=== PATIENT | female | born 1945 | race Caucasian/White ===

== ENCOUNTER 2020-12-17 03:48 | Emergency (ER) | payer MEDICARE, OTHER ==
[2020-12-17 03:59] VITALS: O2SAT 98
[2020-12-17] MEDS ORDERED: Zofran 4 MG/2 ML VIAL IV ONE (04:07)
[2020-12-17] MEDS ORDERED: MORPHINE SULFATE 4 MG INJ IV ONE (04:07)
[2020-12-17] MEDS ORDERED: Pepcid 20 MG VIAL IV ONE ×2 (04:07→04:19)
[2020-12-17] MEDS ORDERED: BENADRYL 50 MG/ML IV ONE (04:10)
[2020-12-17] MEDS ORDERED: Sodium Chloride 0.9% 1000 ML 1,000 ML IV SCH (04:15)
--- NOTE | 2020-12-17 04:18 | ERPHSYRPT ---
- History of Present Illness Time Seen by Provider: 12/17/20 04:11 Historian: patient, family Exam Limitations: no limitations Patient Subjective Stated Complaint: pt states, "I've had this abd pain about 3 or 4 times in the last 6 weeks. It woke me up from sleep this morning". Triage Nursing Assessment: pt c/o abd pain across the abd, but does not radiate anywhere. Abd soft with active bs x4 quad, tender on palpation. Pt states, "the pain woke me up around 0100 this morning and I've had this pain 3-4 times in the last 6 weeks. Pt had bm around 0230 this morning. Physician History: pt is 74 yr old female with hx of recurring abdominal pain lasting about 4 hours awakening at night several times over the past 6 weeks. No fever, N or V, . No trauma. Denies CP or SOBreath, but cardiac is a concern in this age group with epigastric/general abd pain. abd is nontender without peritoneal signs or masses at this time , although it is noted that tenderness appeared present a few moments ago on the nurses exam. Timing/Duration: today Activities at Onset: sleep Quality: sharpness, stabbing Abdominal Pain Onset Location: generalized abdomen Pain Radiation: no radiation Severity of Pain-Max: moderate Severity of Pain-Current: moderate Modifying Factors: Improves With: nothing Associated Symptoms: denies symptoms Allergies/Adverse Reactions: No Known Drug Allergies Allergy (Unverified 12/17/20 04:10) Home Medications: Mecobalamin [B12 Active] 1,000 mg PO WEEKLY 12/17/20 [History] Metformin HCl 500 mg [Glucophage 500 MG] 500 mg PO HS 12/17/20 [History] Hx Tetanus, Diphtheria Vaccination/Date Given: Yes Hx Influenza Vaccination/Date Given: Yes Hx Pneumococcal Vaccination/Date Given: Yes Immunizations Up to Date: Yes Travel Risk - International Travel Have you traveled outside of the country in past 3 weeks: No - Coronavirus Screening Are you exhibiting any of the following symptoms?: No Close contact with a COVID-19 positive Pt in past 14-21 Days: No - Vaccine Status Have you recieved a Covid-19 vaccination: Yes [employer]ter: Moderna - Vaccination Dates Date of 2cond Vaccination (if applicable): 10/12/20 - Review of Systems Constitutional: No Fever, No Chills Eyes: No Symptoms Ears, Nose, & Throat: No Symptoms Respiratory: No Cough, No Dyspnea Cardiac: No Chest Pain, No Edema, No Syncope Abdominal/Gastrointestinal: Abdominal Pain, No Nausea, No Vomiting, No Diarrhea Genitourinary Symptoms: No Dysuria Musculoskeletal: No Back Pain, No Neck Pain Skin: No Rash Neurological: No Dizziness, No Focal Weakness, No Sensory Changes Psychological: No Symptoms Endocrine: No Symptoms All Other Systems: Reviewed and Negative - Past Medical History Pertinent Past Medical History: Yes Neurological History: No Pertinent History ENT History: No Pertinent History Cardiac History: High Cholesterol Respiratory History: No Pertinent History Endocrine Medical History: No Pertinent History Musculoskeletal History: Arthritis GI Medical History: No Pertinent History History: Other Psycho-Social History: No Pertinent History Female Reproductive Disorders: Breast Cancer Other Medical History: dropped prolapsed bladder - Past Surgical History Past Surgical History: Yes Neuro Surgical History: No Pertinent History Cardiac: No Pertinent History Respiratory: No Pertinent History Gastrointestinal: No Pertinent History Genitourinary: No Pertinent History Musculoskeletal: No Pertinent History Female Surgical History: No Pertinent History Other Surgical History: lumpectomy lt side - Social History Smoking Status: Never smoker Exposure to second hand smoke: No Drug Use: none Patient Lives Alone: No - Nursing Vital Signs Nursing Vital Signs: Initial Vital Signs Temperature 98.4 F 12/17/20 03:58 Pulse Rate 92 H 12/17/20 03:58 Respiratory Rate 16 12/17/20 03:58 Blood Pressure 191/87 12/17/20 03:58 O2 Sat by Pulse Oximetry 98 12/17/20 03:58 Pain Scale Pain Intensity 6 - Physical Exam General Appearance: no apparent distress, alert Eye Exam: PERRL/EOMI, eyes nml inspection Ears, Nose, Throat Exam: normal ENT inspection, pharynx normal, moist mucous membranes Neck Exam: normal inspection, non-tender, supple, full range of motion Respiratory Exam: normal breath sounds, lungs clear, No respiratory distress Cardiovascular Exam: regular rate/rhythm, normal heart sounds Gastrointestinal/Abdomen Exam: soft, No tenderness, No distention, No mass, No guarding, No pulsatile mass, No rebound Pelvic Exam: deferred Rectal Exam: deferred Back Exam: normal inspection, normal range of motion, No CVA tenderness, No vertebral tenderness Extremity Exam: normal inspection, normal range of motion, pelvis stable Neurologic Exam: alert, oriented x 3, cooperative, normal mood/affect, nml cerebellar function, sensation nml, No motor deficits Skin Exam: normal color, warm, dry SpO2 Interpretation: normal SpO2: 98 O2 Delivery: Room Air - Course Nursing assessment & vital signs reviewed: Yes EKG Interpreted by Me: Sinus Rhythm, NORMAL AXIS, NORMAL INTERVALS, NORMAL QRS, Non-specific ST Changes - CT Exams Abdomen/Pelvis CT Interpretation: Tele-radiologist Report, No appendicitis, Other (diverticu losis, gallstones,renal cyst,hiatal hernia) Ordered Tests: Active Orders 24 hr Category Date Time Status EKG-ER Only STAT Care 12/17/20 04:07 Active IV Insertion STAT Care 12/17/20 04:07 Active NPO (ED) STAT Care 12/17/20 04:07 Active ABDOMEN AND PELVIS W/0 CONTRAS [CT] Stat Exams 12/17/20 04:08 Taken AMYLASE Stat Lab 12/17/20 04:17 Completed CBC W DIFF Stat Lab 12/17/20 04:17 Completed CMP Stat Lab 12/17/20 04:17 Completed LIPASE Stat Lab 12/17/20 04:17 Completed Lactic Acid Stat Lab 12/17/20 04:07 Completed TROPONIN Q3H Lab 12/17/20 04:15 Completed TROPONIN Q3H Lab 12/17/20 07:15 Ordered TROPONIN Q3H Lab 12/17/20 10:15 Ordered TROPONIN Q3H Lab 12/17/20 13:15 Ordered TROPONIN Q3H Lab 12/17/20 16:15 Ordered UA W/RFX UR CULTURE Stat Lab 12/17/20 04:13 Completed Medication Summary Generic Name Dose Route Start Last Admin Trade Name Freq PRN Reason Stop Dose Admin Sodium Chloride 1,000 mls @ 100 mls/hr 12/17/20 04:15 12/17/20 04:35 Sodium Chloride 0.9% 1000 Ml IV 01/16/21 04:14 100 mls/hr .Q10H JAME Administration Discontinued Medications Generic Name Dose Route Start Last Admin Trade Name Freq PRN Reason Stop Dose Admin Diphenhydramine HCl 12.5 mg 12/17/20 04:10 12/17/20 04:33 Benadryl 50 Mg/Ml IV 12/17/20 04:11 12.5 mg STAT ONE Administration Diphenhydramine HCl Confirm 12/17/20 04:19 Benadryl 50 Mg/Ml Administered 12/17/20 04:20 Dose 50 mg .ROUTE .STK-MED ONE Famotidine 20 mg 12/17/20 04:07 12/17/20 04:34 Pepcid 20 Mg Vial IV 12/17/20 04:08 20 mg STAT ONE Administration Famotidine Confirm 12/17/20 04:19 Pepcid 20 Mg Vial Administered 12/17/20 04:20 Dose 20 mg IV .STK-MED ONE Morphine Sulfate 4 mg 12/17/20 04:07 12/17/20 04:34 Morphine Sulfate 4 Mg Inj IV 12/17/20 04:08 4 mg STAT ONE Administration Morphine Sulfate Confirm 12/17/20 04:19 Morphine Sulfate 4 Mg Inj Administered 12/17/20 04:20 Dose 4 mg .ROUTE .STK-MED ONE Ondansetron HCl 4 mg 12/17/20 04:07 12/17/20 04:34 Zofran 4 Mg/2 Ml Vial IV 12/17/20 04:08 4 mg STAT ONE Administration Ondansetron HCl Confirm 12/17/20 04:19 Zofran 4 Mg/2 Ml Vial Administered 12/17/20 04:20 Dose 4 mg .ROUTE .STK-MED ONE Lab/Rad Data: Laboratory Result Diagrams 12/17/20 04:17 12/17/20 04:17 Laboratory Results 12/17/20 12/17/20 12/17/20 Range/Units 04:17 04:17 04:15 WBC 11.4 H (4.0-10.5) K/mm3 RBC 4.72 (4.1-5.4) M/mm3 Hgb 12.7 (12.0-16.0) gm/dl Hct 40.8 (35-47) % MCV 86.4 (78-100) fl MCH 26.9 (26-32) pg MCHC 31.1 L (32-36) g/dl RDW 13.6 (11.5-14.0) % Plt Count 248 (150-450) K/mm3 MPV 9.2 (7.5-11.0) fl Gran % 80.8 H (36.0-66.0) % Eos # (Auto) 0.15 (0-0.5) Absolute Lymphs (auto) 1.29 (1.0-4.6) Absolute Monos (auto) 0.72 (0.0-1.3) Lymphocytes % 11.3 L (24.0-44.0) % Monocytes % 6.3 (0.0-12.0) % Eosinophils % 1.3 (0.00-5.0) % Basophils % 0.3 (0.0-0.4) % Absolute Granulocytes 9.23 H (1.4-6.9) Basophils # 0.03 (0-0.4) Sodium 142 (137-145) mmol/L Potassium 3.3 L (3.5-5.1) mmol/L Chloride 105 (98-107) mmol/L Carbon Dioxide 29 (22-30) mmol/L Anion Gap 10.1 (5-15) MEQ/L BUN 13 (7-17) mg/dL Creatinine 0.78 (0.52-1.04) mg/dL Estimated GFR > 60.0 ML/MIN Glucose 161 H (74-106) mg/dL Lactic Acid (0.4-2.0) Calcium 9.1 (8.4-10.2) mg/dL Total Bilirubin 0.40 (0.2-1.3) mg/dL AST 20 (14-36) U/L ALT 13 (0-35) U/L Alkaline Phosphatase 98 (38-126) U/L Troponin I < 0.012 (0.000-0.034) ng/mL Serum Total Protein 7.0 (6.3-8.2) g/dL Albumin 4.5 (3.5-5.0) g/dL Amylase 62 (30-110) U/L Lipase 127 (23-300) U/L Urine Color (YELLOW) Urine Appearance (CLEAR) Urine pH (5-6) Ur Specific [place] (1.005-1.025) Urine Protein (Negative) Urine Ketones (NEGATIVE) Urine Blood (0-5) Aneesh/ul Urine Nitrite (NEGATIVE) Urine Bilirubin (NEGATIVE) Urine Urobilinogen (0-1) mg/dL Ur Leukocyte Esterase (NEGATIVE) Urine WBC (Auto) (0-5) /HPF Urine RBC (Auto) (0-2) /HPF U Hyaline Cast (Auto) (0-2) /LPF U Epithel Cells (Auto) (FEW) /HPF Urine Bacteria (Auto) (NEGATIVE) /HPF Urine Mucus (Auto) (NEGATIVE) /HPF Urine Culture Reflexed (NO) Urine Glucose (NEGATIVE) mg/dL 12/17/20 12/17/20 Range/Units 04:13 04:07 WBC (4.0-10.5) K/mm3 RBC (4.1-5.4) M/mm3 Hgb (12.0-16.0) gm/dl Hct (35-47) % MCV (78-100) fl MCH (26-32) pg MCHC (32-36) g/dl RDW (11.5-14.0) % Plt Count (150-450) K/mm3 MPV (7.5-11.0) fl Gran % (36.0-66.0) % Eos # (Auto) (0-0.5) Absolute Lymphs (auto) (1.0-4.6) Absolute Monos (auto) (0.0-1.3) Lymphocytes % (24.0-44.0) % Monocytes % (0.0-12.0) % Eosinophils % (0.00-5.0) % Basophils % (0.0-0.4) % Absolute Granulocytes (1.4-6.9) Basophils # (0-0.4) Sodium (137-145) mmol/L Potassium (3.5-5.1) mmol/L Chloride (98-107) mmol/L Carbon Dioxide (22-30) mmol/L Anion Gap (5-15) MEQ/L BUN (7-17) mg/dL Creatinine (0.52-1.04) mg/dL Estimated GFR ML/MIN Glucose (74-106) mg/dL Lactic Acid 1.2 (0.4-2.0) Calcium (8.4-10.2) mg/dL Total Bilirubin (0.2-1.3) mg/dL AST (14-36) U/L ALT (0-35) U/L Alkaline Phosphatase (38-126) U/L Troponin I (0.000-0.034) ng/mL Serum Total Protein (6.3-8.2) g/dL Albumin (3.5-5.0) g/dL Amylase (30-110) U/L Lipase (23-300) U/L Urine Color YELLOW (YELLOW) Urine Appearance CLEAR (CLEAR) Urine pH 6.0 (5-6) Ur Specific [place] 1.017 (1.005-1.025) Urine Protein NEGATIVE (Negative) Urine Ketones NEGATIVE (NEGATIVE) Urine Blood NEGATIVE (0-5) Aneesh/ul Urine Nitrite NEGATIVE (NEGATIVE) Urine Bilirubin NEGATIVE (NEGATIVE) Urine Urobilinogen NEGATIVE (0-1) mg/dL Ur Leukocyte Esterase NEGATIVE (NEGATIVE) Urine WBC (Auto) NONE (0-5) /HPF Urine RBC (Auto) NONE SEEN (0-2) /HPF U Hyaline Cast (Auto) 0-2 (0-2) /LPF U Epithel Cells (Auto) RARE (FEW) /HPF Urine Bacteria (Auto) NONE (NEGATIVE) /HPF Urine Mucus (Auto) SLIGHT (NEGATIVE) /HPF Urine Culture Reflexed NO (NO) Urine Glucose NEGATIVE (NEGATIVE) mg/dL - Progress Progress: improved, re-examined Progress Note: 12/17/20 06:00 [facility] , that we have not yet determined a precise cause for her abdominal pain, and that undetected pathology including the possibility of a vascular problem could still be evolving or could recur with a potential for complications including . She understands and wishes outpt followup rather than further workup in ER tonight or admission. She has a normal mental status and the capacity to make this choice. SHe reports that the pain is subsiding and will followup the findings and also discuss further w/u including vascular with her this week. Repeat abd exam reveals still nontender. She does give the history for each episode preceded by the consumption of foods containing seeds or kernals which is consistent with diverticular disease and can cause symptoms without diverticulitis , however she is advised to alter her diet , but continue to pursue further workup anyway. Counseled pt/family regarding: lab results, diagnosis, need for follow-up, rad results - Departure Departure Disposition: Home Clinical Impression: Diverticulosis, Cholelithiases, Renal cyst, right, Hypokalemia, Abdominal pain of unknown etiology Condition: Good Critical Care Time: No Referrals: KASIE KWONG [Primary Care Provider] - Instructions: Acute Abdomen (Belly Pain), Adult (DC), Gallstones (DC), Diverticulosis (DC), High Fiber Diet, Hypokalemia (DC) Additional Instructions: We have not yet determined a precise cause for your abdominal pain episodes; therefore further workup with your Drs is advised, since a more serious problem may still be undetected . Meantime Adjust your diet to avoid aggravating your diverticulosis. Followup with your Drs for your low potassium to recheck it, your gallstones, your renal cyst,your elevated blood pressure , your hiatal hernia, and for workup of your abdominal pain including considering a vascular workup for your intestines since there are vascular calcifications in some blood vessels there. your blood sugar and white blood count were also slightly elevated to followup with your Dr. as well as your blood pressure which may require medicine. Return meantime if further episodes, fever, vomiting, or other symptoms of concern.
[2020-12-17] MEDS ORDERED: Zofran 4 MG/2 ML VIAL ONE (04:19)
[2020-12-17] MEDS ORDERED: Sodium Chloride 0.9% 1000 ML 1,000 ML ONE (04:19)
[2020-12-17] MEDS ORDERED: BENADRYL 50 MG/ML ONE (04:19)
[2020-12-17] MEDS ORDERED: MORPHINE SULFATE 4 MG INJ ONE (04:19)
[2020-12-17 04:25] LABS: Absolute Neutrophil Ct (ANC) 9.23 (1.4-6.9); BASOPHIL % 0.3 % (0.0-0.4); Basophil (Absolute #) 0.03 (0-0.4); Eosinophil % 1.3 % (0.00-5.0); Eosinophil (Absolute #) 0.15 (0-0.5); Hematocrit 40.8 % (35-47); Hemoglobin 12.7 gm/dl (12.0-16.0); Lymphocyte (Absolute #) 1.29 (1.0-4.6); Lymphocytes % 11.3 % (24.0-44.0); Mean Cell Volume 86.4 fl (78-100); Mean Corpuscular Hemoglobin 26.9 pg (26-32); Mean Corpuscular Hgb Concent. 31.1 g/dl (32-36); Mean Platelet Volume 9.2 fl (7.5-11.0); Monocyte (Absolute #) 0.72 (0.0-1.3); Monocytes % 6.3 % (0.0-12.0); Neutrophil % 80.8 % (36.0-66.0); Platelet Count 248 K/mm3 (150-450); Red Blood Count 4.72 M/mm3 (4.1-5.4); Red Cell Distribution Width 13.6 % (11.5-14.0); White Blood Count 11.4 K/mm3 (4.0-10.5)
[2020-12-17 04:33] LABS: ALBUMIN 4.5 g/dL (3.5-5.0); ALKALINE PHOSPHATASE 98 U/L (38-126); AMYLASE 62 U/L (30-110); ANION GAP 10.1 MEQ/L (5-15); BLOOD UREA NITROGEN 13 mg/dL (7-17); CHLORIDE 105 mmol/L (98-107); Calcium 9.1 mg/dL (8.4-10.2); Carbon Dioxide 29 mmol/L (22-30); Creatinine 1 0.78 mg/dL (0.52-1.04); EST GLOMERULAR FILTRATION RATE > 60.0 ML/MIN; Glucose 161 mg/dL (74-106); LIPASE 127 U/L (23-300); Potassium 3.3 mmol/L (3.5-5.1); SGOT/AST 20 U/L (14-36); SGPT/ALT 13 U/L (0-35); SODIUM 142 mmol/L (137-145)
[2020-12-17 04:36] LABS: Appearance CLEAR (CLEAR); Bilirubin NEGATIVE (NEGATIVE); Blood NEGATIVE Ery/ul (0-5); Epithelial Cells RARE /HPF (FEW); Glucose NEGATIVE (NEGATIVE); Hyaline Casts 0-2 /LPF (0-2); Ketones NEGATIVE (NEGATIVE); Leukocyte Esterase NEGATIVE (NEGATIVE); Mucus SLIGHT /HPF (NEGATIVE); Nitrite NEGATIVE (NEGATIVE); Protein,Urine Dip NEGATIVE (Negative); RBC NONE SEEN /HPF (0-2); Specific Gravity 1.017 (1.005-1.025); Urobilinogen NEGATIVE mg/dL (0-1)
[2020-12-17] MEDS ORDERED: K-LYTE 25 MEQ PO ONE (06:24)
[2020-12-17 06:27] VITALS: BP 169/72; PULSE 67
[2020-12-17] MEDS ORDERED: K-LYTE 25 MEQ ONE (06:30)
--- NOTE | 2020-12-17 07:54 | XRAY ---
Indication: Abdominal pain. Multiple contiguous axial images obtained through the abdomen and pelvis without contrast. Comparison: None Lung bases are clear. Heart not enlarged. Moderate-sized hiatal hernia with partial intrathoracic stomach. Noncontrasted stomach and bowel loops appear nonobstructed. Normal appendix. Minimal sigmoid diverticulosis. Floor of the pelvis demonstrate a pessary ring. No free fluid/air. Moderately distended gallbladder with 2 large gallstones measuring 2.2 cm. 3.5 cm right upper pole renal cyst. Remaining liver, pancreas, spleen, adrenal glands, kidneys, ureters, bladder, and uterus appear unremarkable for noncontrast exam. Moderate scattered aortoiliac calcifications without AAA. Osseous structures intact with mild degenerative changes throughout the spine. No ventral or inguinal hernias. Impression: 1. Distended gallbladder with large gallstones. Gallbladder sonogram may yield further information if clinically warranted. 2. Moderate-sized hiatal hernia with partial intrathoracic stomach, large right renal cyst, and minimal sigmoid diverticulosis. 3. Remaining CT abdomen/pelvis without contrast exam is negative. Comment: Preliminary interpretation was made by [facility]. No critical discrepancy.
== END 2020-12-17 06:43 | disposition home or self-care (01) ==
LOC: ED 03:48
DX: K57.90 Diverticulosis of intestine, part unspecified, without perforation or abscess without bleeding (principal); K80.20 Calculus of gallbladder without cholecystitis without obstruction; N28.1 Cyst of kidney, acquired; E87.6 Hypokalemia; R10.9 Unspecified abdominal pain; I10 Essential (primary) hypertension
CPT/HCPCS: 36000; 36415; 74176; 80053; 81001; 82150; 83605; 83690; 84484; 85025; 93005; 96374; 96375; 99284; J1200; J2270; J2405; A9270-GY

== ENCOUNTER 2021-04-29 09:36 | Inpatient (IN) | payer OTHER, MEDICARE ==
[2021-04-29 09:55] LABS: Absolute Neutrophil Ct (ANC) 33.15 (1.4-6.9); BASOPHIL % 0.1 % (0.0-0.4); Basophil (Absolute #) 0.04 (0-0.4); Eosinophil (Absolute #) 0 (0-0.5); Hematocrit 43.2 % (35-47); Hemoglobin 14.3 gm/dl (12.0-16.0); Lymphocyte (Absolute #) 1.05 (1.0-4.6); Lymphocytes % 2.9 % (24.0-44.0); Mean Cell Volume 81.7 fl (78-100); Mean Corpuscular Hgb Concent. 33.1 g/dl (32-36); Mean Platelet Volume 9.9 fl (7.5-11.0); Monocyte (Absolute #) 2.44 (0.0-1.3); Monocytes % 6.7 % (0.0-12.0); Neutrophil % 90.3 % (36.0-66.0); Platelet Count 270 K/mm3 (150-450); Red Blood Count 5.29 M/mm3 (4.1-5.4); Red Cell Distribution Width 14.5 % (11.5-14.0)
--- NOTE | 2021-04-29 10:03 | ERPHSYRPT ---
- History of Present Illness Historian: patient Exam Limitations: no limitations Patient Subjective Stated Complaint: pt brought over from clinic for n/v/d on sat, now has nausea, right sided abd pain, weakness, Triage Nursing Assessment: pt alert, resp easy, skin w/d/p, abd soft, Physician History: 75 yo wf w RUQ pain/N/V/D/cough/coryza/MILLER/myalgias/subjective fever x 3 days/ Pt denies dysuria/hematuria/chest pain. She has been fully vaccinated vs CV19. Pain is 5/10 but has been up to an 8 and is sharp in nature. Worse w coughing. Timing/Duration: other (3 days) Quality: sharpness Abdominal Pain Onset Location: RUQ Pain Radiation: no radiation Severity of Pain-Max: severe Severity of Pain-Current: moderate Modifying Factors: Improves With: coughing Associated Symptoms: diarrhea, fever/chills, fatigue, headache, loss of appetite, nausea, vomiting, weakness, No back, No chest pain, No diaphoresis, No heartburn, No neck pain, No rash, No shortness of breath, No syncope Previous symptoms: no prior history Allergies/Adverse Reactions: No Known Drug Allergies Allergy (Verified 04/29/21 09:41) Home Medications: Mecobalamin [B12 Active] 1,000 mg PO WEEKLY 12/17/20 [History] Metformin HCl 500 mg [Glucophage 500 MG] 500 mg PO HS 12/17/20 [History] Hx Tetanus, Diphtheria Vaccination/Date Given: Yes Hx Influenza Vaccination/Date Given: No Hx Pneumococcal Vaccination/Date Given: No Immunizations Up to Date: Yes Travel Risk - International Travel Have you traveled outside of the country in past 3 weeks: No - Coronavirus Screening Are you exhibiting any of the following symptoms?: Yes Symptoms: Cough: New Onset, Shortness of Breath, Vomiting/Diarrhea, Headaches/Body Aches/Fatigue - Vaccine Status Have you recieved a Covid-19 vaccination: Yes [employer]: Moderna - Vaccination Dates Date of 2cond Vaccination (if applicable): september - Review of Systems Constitutional: No Symptoms, Fever, Chills, Fatigue, Lethargy, Malaise, Weakness Eyes: No Symptoms Ears, Nose, & Throat: No Symptoms, Nose Congestion Respiratory: No Symptoms, Cough Cardiac: No Symptoms Abdominal/Gastrointestinal: No Symptoms, Abdominal Pain, Nausea, Vomiting, Diarrhea, No Hematemesis, No Hematochezia, No Melena, No Dysphagia, No Appetite Changes Genitourinary Symptoms: No Symptoms Musculoskeletal: No Symptoms, Arthralgias, Myalgias Skin: No Symptoms Neurological: No Symptoms Psychological: No Symptoms Endocrine: No Symptoms Hematologic/Lymphatic: No Symptoms Immunological/Allergic: No Symptoms - Past Medical History Pertinent Past Medical History: Yes Neurological History: No Pertinent History ENT History: No Pertinent History Cardiac History: High Cholesterol Respiratory History: No Pertinent History Endocrine Medical History: Diabetes Type II Musculoskeletal History: Arthritis GI Medical History: No Pertinent History History: Other Psycho-Social History: No Pertinent History Female Reproductive Disorders: Breast Cancer Other Medical History: dropped prolapsed bladder - Past Surgical History Past Surgical History: Yes Neuro Surgical History: No Pertinent History Cardiac: No Pertinent History Respiratory: No Pertinent History Gastrointestinal: No Pertinent History Genitourinary: No Pertinent History Musculoskeletal: No Pertinent History Female Surgical History: Hysterectomy Other Surgical History: lumpectomy lt side - Social History Smoking Status: Never smoker Exposure to second hand smoke: No Drug Use: none Patient Lives Alone: No Significant Family History: no pertinent family hx - Female History Hx Last Menstrual Period: post Hx Now: No - Nursing Vital Signs Nursing Vital Signs: Initial Vital Signs Temperature 98.5 F 04/29/21 09:36 Pulse Rate 132 H 04/29/21 09:36 Respiratory Rate 18 04/29/21 09:36 Blood Pressure 108/76 04/29/21 09:36 O2 Sat by Pulse Oximetry 98 04/29/21 09:36 Pain Scale Pain Intensity 6 Tachy - Physical Exam General Appearance: no apparent distress Eye Exam: PERRL/EOMI, eyes nml inspection Ears, Nose, Throat Exam: normal ENT inspection, TMs normal, pharynx normal, moist mucous membranes Neck Exam: normal inspection, non-tender, supple, full range of motion Respiratory Exam: airway intact, crackles/rales (Rales bases B R>L), No respiratory distress Cardiovascular Exam: tachycardia, No murmur Gastrointestinal/Abdomen Exam: soft, tenderness (RUQ w guarding) Back Exam: normal inspection, normal range of motion, No CVA tenderness Extremity Exam: normal inspection, normal range of motion Neurologic Exam: alert, oriented x 3, cooperative, police worker II-XII nml as tested, normal mood/affect, nml cerebellar function Skin Exam: normal color, warm Lymphatic Exam: No adenopathy SpO2 Interpretation: normal SpO2: 98 O2 Delivery: Room Air - Course EKG Interpreted by Me: RATE (Sinus tach/R125/Normal QT-QTc/No acute ST changes) - Radiology Exams Chest X-ray Interpretation: Discussed w/ radiologist (CXR-neg per Rad) - CT Exams Chest CT Interpretation: Discussed w/radiologist (Bibasilar atelectasis/partial intrathoracic stomach) Abdomen/Pelvis CT Interpretation: Discussed w/radiologist (Cholecystitis) Ordered Tests: Active Orders 24 hr Category Date Time Status EKG-ER Only STAT Care 04/29/21 10:[address] in Observation ROUTINE Care 04/29/21 13:04 Active NPO Diet 04/29/21 13:05 Active ABDOMEN AND PELVIS W/0 CONTRAS [CT] Stat Exams 04/29/21 10:38 Completed CHEST 1 VIEW (PORTABLE) Stat Exams 04/29/21 09:58 Completed CHEST WITH CONTRAST [CT] Stat Exams 04/29/21 10:40 Taken AMYLASE Stat Lab 04/29/21 09:50 Completed Bilirubin,Direct [Direct Bilirubin] Stat Lab 04/29/21 15:20 Completed CBC W DIFF AM.LAB Lab 04/30/21 04:00 Ordered CBC W DIFF Stat Lab 04/29/21 09:50 Results CMP AM.LAB Lab 04/30/21 04:00 Ordered CMP Stat Lab 04/29/21 09:50 Completed CULTURE,URINE Stat Lab 04/29/21 15:00 Received LIPASE Stat Lab 04/29/21 09:50 Completed Lactic Acid Stat Lab 04/29/21 09:41 Completed Lactic Acid Stat Lab 04/29/21 12:08 Completed Manual Differential NC Stat Lab 04/29/21 09:50 Results Pathologist Review Stat Lab 04/29/21 09:50 Results TROPONIN Q3H Lab 04/29/21 18:45 Completed TROPONIN Q3H Lab 04/29/21 21:45 Ordered UA W/RFX UR CULTURE Stat Lab 04/29/21 15:00 Completed Transfer Order Routine Transfer 04/29/21 Completed Medication Summary Generic Name Dose Route Start Last Admin Trade Name Freq PRN Reason Stop Dose Admin Fentanyl Citrate 25 mcg 04/29/21 13:08 Sublimaze 100 Mcg/2 Ml IV 10/16/21 13:07 Q4H PRN PRN SEVERE PAIN Sodium Chloride 1,000 mls @ 100 mls/hr 04/29/21 13:15 04/29/21 15:18 Sodium Chloride 0.9% 1000 Ml IV 05/29/21 13:14 100 mls/hr .Q10H JAME Administration Piperacillin Sod/Tazobactam 100 mls @ 200 mls/hr 04/30/21 04:00 Sod 3.375 gm/ Sodium Chloride IV 05/03/21 03:59 Q8H JAME Pantoprazole Sodium 40 mg 04/30/21 10:00 Protonix 40 Mg Iv IV 05/30/21 09:59 Q24H10 JAME Discontinued Medications Generic Name Dose Route Start Last Admin Trade Name Freq PRN Reason Stop Dose Admin Sodium Chloride 1,000 mls @ 999 mls/hr 04/29/21 10:11 04/29/21 11:29 Sodium Chloride 0.9% 1000 Ml IV 04/29/21 11:11 Infused .Q1H1M STA Infusion Sodium Chloride Confirm 04/29/21 10:18 Sodium Chloride 0.9% 1000 Ml Administered 04/29/21 10:19 Dose 1,000 mls @ ud .ROUTE .STK-MED ONE Piperacillin Sod/Tazobactam 100 mls @ 200 mls/hr 04/29/21 11:58 04/29/21 12:02 Sod 4.5 gm/ Sodium Chloride IV 04/29/21 12:27 200 mls/hr STAT ONE Administration Sodium Chloride Confirm 04/29/21 12:01 Sodium Chloride 100ml Mini-Bag Plus Administered 04/29/21 12:02 Dose 100 mls @ ud IV .STK-MED ONE Piperacillin Sod/Tazobactam 100 mls @ 200 mls/hr 04/29/21 18:00 04/29/21 19:41 Sod 3.375 gm/ Sodium Chloride IV 05/02/21 17:59 200 mls/hr Q6HT JAME Administration Sodium Chloride Confirm 04/29/21 19:35 Sodium Chloride 100ml Mini-Bag Plus Administered 04/29/21 19:36 Dose 100 mls @ ud IV .STK-MED ONE Piperacillin Sod/Tazobactam Sod Confirm 04/29/21 12:01 Zosyn Inj Administered 04/29/21 12:02 Dose 4.5 gm IV .STK-MED ONE Piperacillin Sod/Tazobactam Sod Confirm 04/29/21 19:34 Zosyn 3.375 Gm Vial Administered 04/29/21 19:35 Dose 3.375 gm IV .STK-MED ONE Lab/Rad Data: Laboratory Result Diagrams 04/29/21 09:50 04/29/21 09:50 Laboratory Results 04/29/21 04/29/21 04/29/21 Range/Units 15:26 15:20 15:00 WBC (4.0-10.5) K/mm3 RBC (4.1-5.4) M/mm3 Hgb (12.0-16.0) gm/dl Hct (35-47) % MCV (78-100) fl MCH (26-32) pg MCHC (32-36) g/dl RDW (11.5-14.0) % Plt Count (150-450) K/mm3 MPV (7.5-11.0) fl Gran % (36.0-66.0) % Eos # (Auto) (0-0.5) Absolute Lymphs (auto) (1.0-4.6) Absolute Monos (auto) (0.0-1.3) Lymphocytes % (24.0-44.0) % Monocytes % (0.0-12.0) % Eosinophils % (0.00-5.0) % Basophils % (0.0-0.4) % Absolute Granulocytes (1.4-6.9) Segmented Neutrophils (36.0-66.0) % Lymphocytes (Manual) (24-44) % Monocytes (Manual) (0.0-12.0) % Basophils # (0-0.4) Platelet Estimate (NORMAL) RBC Morphology Anisocytosis Microcytosis Macrocytosis Smear Path Review Sodium (137-145) mmol/L Potassium (3.5-5.1) mmol/L Chloride (98-107) mmol/L Carbon Dioxide (22-30) mmol/L Anion Gap (5-15) MEQ/L BUN (7-17) mg/dL Creatinine (0.52-1.04) mg/dL Estimated GFR ML/MIN Glucose (74-106) mg/dL Lactic Acid (0.4-2.0) Calcium (8.4-10.2) mg/dL Total Bilirubin (0.2-1.3) mg/dL Direct Bilirubin 0.4 (0.0-0.4) mg/dL AST (14-36) U/L ALT (0-35) U/L Alkaline Phosphatase (38-126) U/L Troponin 0.01 (0.00-0.03) ng/mL Serum Total Protein (6.3-8.2) g/dL Albumin (3.5-5.0) g/dL Amylase (30-110) U/L Lipase (23-300) U/L Urine Color YELLOW (YELLOW) Urine Appearance SLIGHTLY CLOUDY (CLEAR) Urine pH 5.0 (5-6) Ur Specific [place] >1.060 (1.005-1.025) Urine Protein 30 (Negative) Urine Ketones NEGATIVE (NEGATIVE) Urine Blood SMALL (0-5) Aneesh/ul Urine Nitrite NEGATIVE (NEGATIVE) Urine Bilirubin NEGATIVE (NEGATIVE) Urine Urobilinogen NEGATIVE (0-1) mg/dL Ur Leukocyte Esterase TRACE (NEGATIVE) Urine WBC (Auto) 6-10 (0-5) /HPF Urine RBC (Auto) 3-5 (0-2) /HPF U Epithel Cells (Auto) NONE (FEW) /HPF Urine Bacteria (Auto) RARE (NEGATIVE) /HPF Urine Mucus (Auto) SLIGHT (NEGATIVE) /HPF Urine Culture Reflexed YES (NO) Urine Glucose 50 (NEGATIVE) mg/dL SARS-CoV-2 (PCR) (NEGATIVE) 04/29/21 04/29/21 04/29/21 Range/Units 12:31 12:28 12:08 WBC (4.0-10.5) K/mm3 RBC (4.1-5.4) M/mm3 Hgb (12.0-16.0) gm/dl Hct (35-47) % MCV (78-100) fl MCH (26-32) pg MCHC (32-36) g/dl RDW (11.5-14.0) % Plt Count (150-450) K/mm3 MPV (7.5-11.0) fl Gran % (36.0-66.0) % Eos # (Auto) (0-0.5) Absolute Lymphs (auto) (1.0-4.6) Absolute Monos (auto) (0.0-1.3) Lymphocytes % (24.0-44.0) % Monocytes % (0.0-12.0) % Eosinophils % (0.00-5.0) % Basophils % (0.0-0.4) % Absolute Granulocytes (1.4-6.9) Segmented Neutrophils (36.0-66.0) % Lymphocytes (Manual) (24-44) % Monocytes (Manual) (0.0-12.0) % Basophils # (0-0.4) Platelet Estimate (NORMAL) RBC Morphology Anisocytosis Microcytosis Macrocytosis Smear Path Review Sodium (137-145) mmol/L Potassium (3.5-5.1) mmol/L Chloride (98-107) mmol/L Carbon Dioxide (22-30) mmol/L Anion Gap (5-15) MEQ/L BUN (7-17) mg/dL Creatinine (0.52-1.04) mg/dL Estimated GFR ML/MIN Glucose (74-106) mg/dL Lactic Acid 2.8 H (0.4-2.0) Calcium (8.4-10.2) mg/dL Total Bilirubin (0.2-1.3) mg/dL Direct Bilirubin (0.0-0.4) mg/dL AST (14-36) U/L ALT (0-35) U/L Alkaline Phosphatase (38-126) U/L Troponin 0.16 H (0.00-0.03) ng/mL Serum Total Protein (6.3-8.2) g/dL Albumin (3.5-5.0) g/dL Amylase (30-110) U/L Lipase (23-300) U/L Urine Color (YELLOW) Urine Appearance (CLEAR) Urine pH (5-6) Ur Specific [place] (1.005-1.025) Urine Protein (Negative) Urine Ketones (NEGATIVE) Urine Blood (0-5) Aneesh/ul Urine Nitrite (NEGATIVE) Urine Bilirubin (NEGATIVE) Urine Urobilinogen (0-1) mg/dL Ur Leukocyte Esterase (NEGATIVE) Urine WBC (Auto) (0-5) /HPF Urine RBC (Auto) (0-2) /HPF U Epithel Cells (Auto) (FEW) /HPF Urine Bacteria (Auto) (NEGATIVE) /HPF Urine Mucus (Auto) (NEGATIVE) /HPF Urine Culture Reflexed (NO) Urine Glucose (NEGATIVE) mg/dL SARS-CoV-2 (PCR) NEGATIVE (NEGATIVE) 04/29/21 04/29/21 04/29/21 Range/Units 09:50 09:50 09:50 WBC 36.7 H* (4.0-10.5) K/mm3 RBC 5.29 (4.1-5.4) M/mm3 Hgb 14.3 (12.0-16.0) gm/dl Hct 43.2 (35-47) % MCV 81.7 (78-100) fl MCH 27.0 (26-32) pg MCHC 33.1 (32-36) g/dl RDW 14.5 H (11.5-14.0) % Plt Count 270 (150-450) K/mm3 MPV 9.9 (7.5-11.0) fl Gran % 90.3 H (36.0-66.0) % Eos # (Auto) 0 (0-0.5) Absolute Lymphs (auto) 1.05 (1.0-4.6) Absolute Monos (auto) 2.44 H (0.0-1.3) Lymphocytes % 2.9 L (24.0-44.0) % Monocytes % 6.7 (0.0-12.0) % Eosinophils % 0.0 (0.00-5.0) % Basophils % 0.1 (0.0-0.4) % Absolute Granulocytes 33.15 H (1.4-6.9) Segmented Neutrophils 94 H (36.0-66.0) % Lymphocytes (Manual) 1 L (24-44) % Monocytes (Manual) 5 (0.0-12.0) % Basophils # 0.04 (0-0.4) Platelet Estimate INCREASED (NORMAL) RBC Morphology ABNORMAL Anisocytosis 1+ Microcytosis 1+ Macrocytosis 1+ Smear Path Review Pending Sodium 132 L (137-145) mmol/L Potassium 3.9 (3.5-5.1) mmol/L Chloride 96 L (98-107) mmol/L Carbon Dioxide 22 (22-30) mmol/L Anion Gap 18.1 H (5-15) MEQ/L BUN 26 H (7-17) mg/dL Creatinine 1.30 H (0.52-1.04) mg/dL Estimated GFR 42.4 ML/MIN Glucose 273 H (74-106) mg/dL Lactic Acid (0.4-2.0) Calcium 9.5 (8.4-10.2) mg/dL Total Bilirubin 1.60 H (0.2-1.3) mg/dL Direct Bilirubin (0.0-0.4) mg/dL AST 30 (14-36) U/L ALT 31 (0-35) U/L Alkaline Phosphatase 113 (38-126) U/L Troponin 0.00 (0.00-0.03) ng/mL Serum Total Protein 7.5 (6.3-8.2) g/dL Albumin 4.3 (3.5-5.0) g/dL Amylase 46 (30-110) U/L Lipase 26 (23-300) U/L Urine Color (YELLOW) Urine Appearance (CLEAR) Urine pH (5-6) Ur Specific [place] (1.005-1.025) Urine Protein (Negative) Urine Ketones (NEGATIVE) Urine Blood (0-5) Aneesh/ul Urine Nitrite (NEGATIVE) Urine Bilirubin (NEGATIVE) Urine Urobilinogen (0-1) mg/dL Ur Leukocyte Esterase (NEGATIVE) Urine WBC (Auto) (0-5) /HPF Urine RBC (Auto) (0-2) /HPF U Epithel Cells (Auto) (FEW) /HPF Urine Bacteria (Auto) (NEGATIVE) /HPF Urine Mucus (Auto) (NEGATIVE) /HPF Urine Culture Reflexed (NO) Urine Glucose (NEGATIVE) mg/dL SARS-CoV-2 (PCR) (NEGATIVE) 04/29/21 Range/Units 09:41 WBC (4.0-10.5) K/mm3 RBC (4.1-5.4) M/mm3 Hgb (12.0-16.0) gm/dl Hct (35-47) % MCV (78-100) fl MCH (26-32) pg MCHC (32-36) g/dl RDW (11.5-14.0) % Plt Count (150-450) K/mm3 MPV (7.5-11.0) fl Gran % (36.0-66.0) % Eos # (Auto) (0-0.5) Absolute Lymphs (auto) (1.0-4.6) Absolute Monos (auto) (0.0-1.3) Lymphocytes % (24.0-44.0) % Monocytes % (0.0-12.0) % Eosinophils % (0.00-5.0) % Basophils % (0.0-0.4) % Absolute Granulocytes (1.4-6.9) Segmented Neutrophils (36.0-66.0) % Lymphocytes (Manual) (24-44) % Monocytes (Manual) (0.0-12.0) % Basophils # (0-0.4) Platelet Estimate (NORMAL) RBC Morphology Anisocytosis Microcytosis Macrocytosis Smear Path Review Sodium (137-145) mmol/L Potassium (3.5-5.1) mmol/L Chloride (98-107) mmol/L Carbon Dioxide (22-30) mmol/L Anion Gap (5-15) MEQ/L BUN (7-17) mg/dL Creatinine (0.52-1.04) mg/dL Estimated GFR ML/MIN Glucose (74-106) mg/dL Lactic Acid 2.2 H (0.4-2.0) Calcium (8.4-10.2) mg/dL Total Bilirubin (0.2-1.3) mg/dL Direct Bilirubin (0.0-0.4) mg/dL AST (14-36) U/L ALT (0-35) U/L Alkaline Phosphatase (38-126) U/L Troponin (0.00-0.03) ng/mL Serum Total Protein (6.3-8.2) g/dL Albumin (3.5-5.0) g/dL Amylase (30-110) U/L Lipase (23-300) U/L Urine Color (YELLOW) Urine Appearance (CLEAR) Urine pH (5-6) Ur Specific [place] (1.005-1.025) Urine Protein (Negative) Urine Ketones (NEGATIVE) Urine Blood (0-5) Aneesh/ul Urine Nitrite (NEGATIVE) Urine Bilirubin (NEGATIVE) Urine Urobilinogen (0-1) mg/dL Ur Leukocyte Esterase (NEGATIVE) Urine WBC (Auto) (0-5) /HPF Urine RBC (Auto) (0-2) /HPF U Epithel Cells (Auto) (FEW) /HPF Urine Bacteria (Auto) (NEGATIVE) /HPF Urine Mucus (Auto) (NEGATIVE) /HPF Urine Culture Reflexed (NO) Urine Glucose (NEGATIVE) mg/dL SARS-CoV-2 (PCR) (NEGATIVE) - Progress Progress Note: 04/29/21 13:[address] Kirkpatrick for Dr. Gibbons/[facility] surgeon called 04/29/21 15:06 1L NS bolus Zosyn 4.5gm IV Surprisingly, Pt's troponin elevated on Istat on 2nd draw. Spoke to Dr. Kirkpatrick, [facility] to transfer pt. Pt accepted by Dr. Wilkes at [facility] but no beds available until later tonight. [facility] beds. 04/29/21 16:53 3rd troponin neg, so Dr. Kirkpatrick agreed to admit pt 04/29/21 16:54 Dr. Darling saw pt in ER Counseled pt/family regarding: lab results, diagnosis, need for follow-up, rad results - Departure Departure Disposition: Observation Clinical Impression: Cholecystitis, UTI (urinary tract infection) Condition: Stable Critical Care Time: No
[2021-04-29 10:08] LABS: ALBUMIN 4.3 g/dL (3.5-5.0); ANION GAP 18.1 MEQ/L (5-15); BILIRUBIN,TOTAL 1.6 mg/dL (0.2-1.3); Calcium 9.5 mg/dL (8.4-10.2); Creatinine 1 1.3 mg/dL (0.52-1.04); EST GLOMERULAR FILTRATION RATE 42.4 ML/MIN; Potassium 3.9 mmol/L (3.5-5.1); Total Protein 7.5 g/dL (6.3-8.2)
[2021-04-29] MEDS ORDERED: Sodium Chloride 0.9% 1000 ML 1,000 ML IV STA (10:11)
[2021-04-29] MEDS ORDERED: Sodium Chloride 0.9% 1000 ML 1,000 ML ONE (10:18)
[2021-04-29 10:31] LABS: White Blood Count 36.7 K/mm3 (4.0-10.5)
--- NOTE | 2021-04-29 10:32 | XRAY ---
Indication: Cough and short of breath. Comparison: December 25, 2014. Portable chest less inflated and remains clear. Heart not enlarged with new small hiatal hernia. Bony thorax intact.
[2021-04-29 10:39] LABS: ANISOCYTOSIS 1+; Lymphocytes 1 % (24-44); Macrocytosis 1+; Microcytosis 1+; Monocyte 5 % (0.0-12.0); Neutrophils 94 % (36.0-66.0); Platelet Estimate INCREASED (NORMAL); Total Cells Counted 100
--- NOTE | 2021-04-29 11:44 | XRAY ---
Indication: Cough, right upper quadrant pain, vomiting, diarrhea. Multiple contiguous axial images obtained through the abdomen and pelvis without contrast as ordered. Comparison: December 17, 2020. CT chest reported separately. Noncontrasted stomach and bowel loops appear nonobstructed. Stable minimal sigmoid diverticulosis. Gallbladder again moderately distended with 2.5 cm gallstone. New gallbladder wall thickening, stranding and pericholecystic fluid favoring acute cholecystitis. Small pelvic free fluid presumed related. No walled off fluid collection or free air. Stable 3.5 cm right upper renal cyst. Remaining liver, pancreas, spleen, adrenal glands, kidneys, ureters, and bladder are unremarkable. Osseous structures intact again with mild degenerative changes to the spine. Impression: 1. Again abnormal distended gallbladder with large gallstone. New gallbladder wall thickening, stranding, and free fluid favoring acute cholecystitis. 2. Again incidental sigmoid diverticulosis, right renal cyst, and chronic bony findings.
[2021-04-29] MEDS ORDERED: Zosyn INJ 4.5 GM in Sodium Chloride 100ML MINI-BAG PLUS 100 ML IV ONE (11:58)
[2021-04-29] MEDS ORDERED: Sodium Chloride 100ML MINI-BAG PLUS 100 ML IV ONE ×2 (12:01→19:35)
[2021-04-29] MEDS ORDERED: Zosyn INJ IV ONE (12:01)
[2021-04-29] MEDS ORDERED: SUBLIMAZE 100 MCG/2 ML IV PRN (13:08)
[2021-04-29] MEDS: Sodium Chloride 0.9% 1000 ML 1,000 ML IV SCH (15:18)
[2021-04-29 15:37] LABS: Appearance SLIGHTLY CLOUDY (CLEAR); Bacteria RARE /HPF (NEGATIVE); Bilirubin NEGATIVE (NEGATIVE); Blood SMALL Ery/ul (0-5); Glucose 50 mg/dL (NEGATIVE); Ketones NEGATIVE (NEGATIVE); Leukocyte Esterase TRACE (NEGATIVE); Mucus SLIGHT /HPF (NEGATIVE); Nitrite NEGATIVE (NEGATIVE); Protein,Urine Dip 30 (Negative); Specific Gravity >1.060 (1.005-1.025); Urobilinogen NEGATIVE mg/dL (0-1)
[2021-04-29] MEDS ORDERED: Zosyn 3.375 GM Vial 3.375 GM in Sodium Chloride 100ML MINI-BAG PLUS 100 ML IV SCH (18:00)
[2021-04-29] MEDS ORDERED: Zosyn 3.375 GM Vial IV ONE (19:34)
[2021-04-29] MEDS ORDERED: Lactated Ringers 500 ML IV ONE (21:36)
[2021-04-30] MEDS: Sodium Chloride 0.9% 1000 ML 1,000 ML IV SCH ×3 (03:06→20:25)
[2021-04-30] MEDS ORDERED: Zosyn 3.375 GM Vial 3.375 GM in Sodium Chloride 100ML MINI-BAG PLUS 100 ML IV SCH (04:00)
[2021-04-30 04:56] LABS: Absolute Neutrophil Ct (ANC) 18.96 (1.4-6.9); BASOPHIL % 0.1 % (0.0-0.4); Basophil (Absolute #) 0.02 (0-0.4); Eosinophil (Absolute #) 0.01 (0-0.5); Hematocrit 34.6 % (35-47); Hemoglobin 10.9 gm/dl (12.0-16.0); Lymphocyte (Absolute #) 0.89 (1.0-4.6); Lymphocytes % 4.2 % (24.0-44.0); Mean Corpuscular Hemoglobin 26.8 pg (26-32); Mean Corpuscular Hgb Concent. 31.5 g/dl (32-36); Mean Platelet Volume 10.1 fl (7.5-11.0); Monocyte (Absolute #) 1.23 (0.0-1.3); Monocytes % 5.8 % (0.0-12.0); Neutrophil % 89.9 % (36.0-66.0); Platelet Count 200 K/mm3 (150-450); Red Blood Count 4.07 M/mm3 (4.1-5.4); Red Cell Distribution Width 14.5 % (11.5-14.0); White Blood Count 21.1 K/mm3 (4.0-10.5)
[2021-04-30 05:19] LABS: ALBUMIN 3.1 g/dL (3.5-5.0); ALKALINE PHOSPHATASE 83 U/L (38-126); ANION GAP 12.3 MEQ/L (5-15); BLOOD UREA NITROGEN 19 mg/dL (7-17); CHLORIDE 105 mmol/L (98-107); Calcium 8.7 mg/dL (8.4-10.2); Carbon Dioxide 23 mmol/L (22-30); Creatinine 1 0.85 mg/dL (0.52-1.04); EST GLOMERULAR FILTRATION RATE > 60.0 ML/MIN; Glucose 108 mg/dL (74-106); Potassium 3.3 mmol/L (3.5-5.1); SGOT/AST 18 U/L (14-36); SGPT/ALT 17 U/L (0-35); SODIUM 136 mmol/L (137-145); Total Protein 5.9 g/dL (6.3-8.2)
[2021-04-30] MEDS ORDERED: MEFOXIN 2 GM PREMIX** 2 GM/50 ML ML IV SCH (07:00)
--- NOTE | 2021-04-30 07:28 | XRAY ---
Indication: Cough, right upper quadrant pain, vomiting, diarrhea. Multiple contiguous axial images obtained through the chest using 80 cc Isovue 370 contrast. Comparison: None Lungs demonstrates mild bibasilar subsegmental atelectasis/scarring. No suspicious pulmonary mass, infiltrate, or effusion. Heart is not enlarged. Aorta is mildly arteriosclerotic without aneurysm/dissection. Tiny right hilar calcified nodes. No pathologic mediastinal/hilar lymphadenopathy. Moderate-sized hiatal hernia with partial intrathoracic stomach. Bony thorax intact with minimal degenerative changes throughout the spine. CT abdomen/pelvis reported separately. Impression: 1. Bibasilar subsegmental atelectasis/scarring and hiatal hernia with partial intrathoracic stomach. 2. Remaining CT chest with contrast exam is negative.
--- NOTE | 2021-04-30 08:45 | PCM.HP ---
History of Present Illness - Chief Complaint Chief Complaint: abd pain, cholelithiasis History of Present Illness: is a 75 year old female pt of [facility] with pre-diabetes who was admitted through ER with sepsis and cholecystitis. She has had "attacks" of pain for years that have resolved on their own, and had a known gallstone. Four days ago she started having RLQ pain, vomiting, diarrhea, cough and runny nose. Yesterday she went to to get a Covid test and was sent to the ER where she was found to have WBC of 36,700, acute renal insufficiency, tachycardia, and distended GB with 2.5 cm stone, stranding, and fluid on CT scan. Pt was started on IV zosyn and surgery was consulted. This morning, her WBC are 21,100 and she is feeling "pretty good." Pain was initially 8/10 but is 5/10 this morning. Lactic acid is down to 0.6 from 2.8 initially. Cr is 0.85 down from 1.3 on admission. She is NPO for surgery. - Review of Systems Ears, Nose, & Throat: Nose Discharge Respiratory: Cough Abdominal/Gastrointestinal: Abdominal Pain, Nausea, Vomiting, Diarrhea All Other Systems: Reviewed and Negative Medications & Allergies Home Medications: Home Medication List Mecobalamin [B12 Active] 1,000 mg PO WEEKLY 12/17/20 [History Confirmed 04/29/21] Metformin HCl 500 mg [Glucophage 500 MG] 500 mg PO HS 12/17/20 [History Confirmed 04/29/21] Allergies/Adverse Reactions: Allergies Allergy/AdvReac Type Severity Reaction Status Date / Time No Known Drug Allergies Allergy Verified 04/29/21 09:41 - Past Medical History Past Medical History: Yes Neurological History: No Pertinent History ENT History: No Pertinent History Cardiac History: High Cholesterol Respiratory History: No Pertinent History Endocrine Medical History: Diabetes Type II Musculoskelatal History: Arthritis GI Medical History: No Pertinent History History: Other Pyscho-Social History: No Pertinent History Reproductive Disorders: Breast Cancer Comment: dropped prolapsed bladder - Female History Hx Last Menstrual Period: post Are you now?: No - Past Surgical History Past Surgical History: Yes Neuro Surgical History: No Pertinent History Cardiac History: No Pertinent History Respiratory Surgery: No Pertinent History GI Surgical History: No Pertinent History Genitourinary Surgical Hx: No Pertinent History Musculskeletal Surgical Hx: No Pertinent History Female Surgical History: Hysterectomy Other Surgical History: lumpectomy lt side - Social History Smoking Status: Never smoker Exposure to second hand smoke: No Alcohol: None Drug Use: none Significant Family History: no pertinent family hx - Physical Exam Vital Signs: Vital Signs - 24 hr Temp Pulse Resp BP Pulse Ox 04/30/21 07:41 96.1 F 102 H 24 130/59 91 L 04/30/21 04:00 97.5 F 103 H 16 128/62 92 L 04/29/21 23:22 96.9 F 108 H 16 124/57 94 L 04/29/21 21:12 98 04/29/21 20:00 97.8 F 123 H 18 130/64 95 04/29/21 18:44 97.8 F 123 H 18 130/64 95 04/29/21 17:00 123 H 22 112/69 97 04/29/21 16:00 114 H 22 125/73 96 04/29/21 15:00 117 H 25 H 123/69 96 04/29/21 14:05 115 H 25 H 117/69 97 04/29/21 13:11 100 H 126/70 98 04/29/21 12:00 78 18 137/73 96 04/29/21 09:36 98.5 F 132 H 18 108/76 98 General Appearance: no apparent distress, alert Neurologic Exam: oriented x 3, cooperative Eye Exam: eyes nml inspection Ears, Nose, Throat Exam: moist mucous membranes Neck Exam: normal inspection, non-tender, No lymphadenopathy, No thyromegaly Respiratory Exam: normal breath sounds, lungs clear, No crackles/rales, No rhonchi, No wheezing Cardiovascular Exam: regular rate/rhythm, normal heart sounds, No murmur Gastrointestinal/Abdomen Exam: soft, normal bowel sounds, tenderness (throughout, marked), guarding, rebound, No distention, No mass Back Exam: normal inspection, No CVA tenderness, No rash Extremity Exam: normal inspection, No pedal edema, No swelling Results - Labs Lab/Micro Results: Lab Results-Last 24 Hours 04/29/21 04/29/21 04/29/21 Range/Units 09:41 09:50 09:50 WBC 36.7 H* (4.0-10.5) K/mm3 RBC 5.29 (4.1-5.4) M/mm3 Hgb 14.3 (12.0-16.0) gm/dl Hct 43.2 (35-47) % MCV 81.7 (78-100) fl MCH 27.0 (26-32) pg MCHC 33.1 (32-36) g/dl RDW 14.5 H (11.5-14.0) % Plt Count 270 (150-450) K/mm3 MPV 9.9 (7.5-11.0) fl Gran % 90.3 H (36.0-66.0) % Eos # (Auto) 0 (0-0.5) Absolute Lymphs (auto) 1.05 (1.0-4.6) Absolute Monos (auto) 2.44 H (0.0-1.3) Lymphocytes % 2.9 L (24.0-44.0) % Monocytes % 6.7 (0.0-12.0) % Eosinophils % 0.0 (0.00-5.0) % Basophils % 0.1 (0.0-0.4) % Absolute Granulocytes 33.15 H (1.4-6.9) Segmented Neutrophils 94 H (36.0-66.0) % Lymphocytes (Manual) 1 L (24-44) % Monocytes (Manual) 5 (0.0-12.0) % Basophils # 0.04 (0-0.4) Platelet Estimate INCREASED (NORMAL) RBC Morphology ABNORMAL Anisocytosis 1+ Microcytosis 1+ Macrocytosis 1+ Smear Path Review Pending Sodium 132 L (137-145) mmol/L Potassium 3.9 (3.5-5.1) mmol/L Chloride 96 L (98-107) mmol/L Carbon Dioxide 22 (22-30) mmol/L Anion Gap 18.1 H (5-15) MEQ/L BUN 26 H (7-17) mg/dL Creatinine 1.30 H (0.52-1.04) mg/dL Estimated GFR 42.4 ML/MIN Glucose 273 H (74-106) mg/dL POC Glucometer (74 to 106) mg/dL Lactic Acid 2.2 H (0.4-2.0) Calcium 9.5 (8.4-10.2) mg/dL Total Bilirubin 1.60 H (0.2-1.3) mg/dL Direct Bilirubin (0.0-0.4) mg/dL AST 30 (14-36) U/L ALT 31 (0-35) U/L Alkaline Phosphatase 113 (38-126) U/L Troponin (0.00-0.03) ng/mL Troponin I (0.000-0.034) ng/mL Serum Total Protein 7.5 (6.3-8.2) g/dL Albumin 4.3 (3.5-5.0) g/dL Amylase 46 (30-110) U/L Lipase 26 (23-300) U/L Procalcitonin (0.030-0.080) ng/mL Urine Color (YELLOW) Urine Appearance (CLEAR) Urine pH (5-6) Ur Specific Oscar (1.005-1.025) Urine Protein (Negative) Urine Ketones (NEGATIVE) Urine Blood (0-5) Aneesh/ul Urine Nitrite (NEGATIVE) Urine Bilirubin (NEGATIVE) Urine Urobilinogen (0-1) mg/dL Ur Leukocyte Esterase (NEGATIVE) Urine WBC (Auto) (0-5) /HPF Urine RBC (Auto) (0-2) /HPF U Epithel Cells (Auto) (FEW) /HPF Urine Bacteria (Auto) (NEGATIVE) /HPF Urine Mucus (Auto) (NEGATIVE) /HPF Urine Culture Reflexed (NO) Urine Glucose (NEGATIVE) mg/dL SARS-CoV-2 (PCR) (NEGATIVE) 04/29/21 04/29/21 04/29/21 Range/Units 09:50 12:08 12:28 WBC (4.0-10.5) K/mm3 RBC (4.1-5.4) M/mm3 Hgb (12.0-16.0) gm/dl Hct (35-47) % MCV (78-100) fl MCH (26-32) pg MCHC (32-36) g/dl RDW (11.5-14.0) % Plt Count (150-450) K/mm3 MPV (7.5-11.0) fl Gran % (36.0-66.0) % Eos # (Auto) (0-0.5) Absolute Lymphs (auto) (1.0-4.6) Absolute Monos (auto) (0.0-1.3) Lymphocytes % (24.0-44.0) % Monocytes % (0.0-12.0) % Eosinophils % (0.00-5.0) % Basophils % (0.0-0.4) % Absolute Granulocytes (1.4-6.9) Segmented Neutrophils (36.0-66.0) % Lymphocytes (Manual) (24-44) % Monocytes (Manual) (0.0-12.0) % Basophils # (0-0.4) Platelet Estimate (NORMAL) RBC Morphology Anisocytosis Microcytosis Macrocytosis Smear Path Review Sodium (137-145) mmol/L Potassium (3.5-5.1) mmol/L Chloride (98-107) mmol/L Carbon Dioxide (22-30) mmol/L Anion Gap (5-15) MEQ/L BUN (7-17) mg/dL Creatinine (0.52-1.04) mg/dL Estimated GFR ML/MIN Glucose (74-106) mg/dL POC Glucometer (74 to 106) mg/dL Lactic Acid 2.8 H (0.4-2.0) Calcium (8.4-10.2) mg/dL Total Bilirubin (0.2-1.3) mg/dL Direct Bilirubin (0.0-0.4) mg/dL AST (14-36) U/L ALT (0-35) U/L Alkaline Phosphatase (38-126) U/L Troponin 0.00 (0.00-0.03) ng/mL Troponin I (0.000-0.034) ng/mL Serum Total Protein (6.3-8.2) g/dL Albumin (3.5-5.0) g/dL Amylase (30-110) U/L Lipase (23-300) U/L Procalcitonin (0.030-0.080) ng/mL Urine Color (YELLOW) Urine Appearance (CLEAR) Urine pH (5-6) Ur Specific Oscar (1.005-1.025) Urine Protein (Negative) Urine Ketones (NEGATIVE) Urine Blood (0-5) Aneesh/ul Urine Nitrite (NEGATIVE) Urine Bilirubin (NEGATIVE) Urine Urobilinogen (0-1) mg/dL Ur Leukocyte Esterase (NEGATIVE) Urine WBC (Auto) (0-5) /HPF Urine RBC (Auto) (0-2) /HPF U Epithel Cells (Auto) (FEW) /HPF Urine Bacteria (Auto) (NEGATIVE) /HPF Urine Mucus (Auto) (NEGATIVE) /HPF Urine Culture Reflexed (NO) Urine Glucose (NEGATIVE) mg/dL SARS-CoV-2 (PCR) NEGATIVE (NEGATIVE) 04/29/21 04/29/21 04/29/21 Range/Units 12:31 15:00 15:20 WBC (4.0-10.5) K/mm3 RBC (4.1-5.4) M/mm3 Hgb (12.0-16.0) gm/dl Hct (35-47) % MCV (78-100) fl MCH (26-32) pg MCHC (32-36) g/dl RDW (11.5-14.0) % Plt Count (150-450) K/mm3 MPV (7.5-11.0) fl Gran % (36.0-66.0) % Eos # (Auto) (0-0.5) Absolute Lymphs (auto) (1.0-4.6) Absolute Monos (auto) (0.0-1.3) Lymphocytes % (24.0-44.0) % Monocytes % (0.0-12.0) % Eosinophils % (0.00-5.0) % Basophils % (0.0-0.4) % Absolute Granulocytes (1.4-6.9) Segmented Neutrophils (36.0-66.0) % Lymphocytes (Manual) (24-44) % Monocytes (Manual) (0.0-12.0) % Basophils # (0-0.4) Platelet Estimate (NORMAL) RBC Morphology Anisocytosis Microcytosis Macrocytosis Smear Path Review Sodium (137-145) mmol/L Potassium (3.5-5.1) mmol/L Chloride (98-107) mmol/L Carbon Dioxide (22-30) mmol/L Anion Gap (5-15) MEQ/L BUN (7-17) mg/dL Creatinine (0.52-1.04) mg/dL Estimated GFR ML/MIN Glucose (74-106) mg/dL POC Glucometer (74 to 106) mg/dL Lactic Acid (0.4-2.0) Calcium (8.4-10.2) mg/dL Total Bilirubin (0.2-1.3) mg/dL Direct Bilirubin 0.4 (0.0-0.4) mg/dL AST (14-36) U/L ALT (0-35) U/L Alkaline Phosphatase (38-126) U/L Troponin 0.16 H (0.00-0.03) ng/mL Troponin I (0.000-0.034) ng/mL Serum Total Protein (6.3-8.2) g/dL Albumin (3.5-5.0) g/dL Amylase (30-110) U/L Lipase (23-300) U/L Procalcitonin (0.030-0.080) ng/mL Urine Color YELLOW (YELLOW) Urine Appearance SLIGHTLY CLOUDY (CLEAR) Urine pH 5.0 (5-6) Ur Specific Oscar >1.060 (1.005-1.025) Urine Protein 30 (Negative) Urine Ketones NEGATIVE (NEGATIVE) Urine Blood SMALL (0-5) Aneesh/ul Urine Nitrite NEGATIVE (NEGATIVE) Urine Bilirubin NEGATIVE (NEGATIVE) Urine Urobilinogen NEGATIVE (0-1) mg/dL Ur Leukocyte Esterase TRACE (NEGATIVE) Urine WBC (Auto) 6-10 (0-5) /HPF Urine RBC (Auto) 3-5 (0-2) /HPF U Epithel Cells (Auto) NONE (FEW) /HPF Urine Bacteria (Auto) RARE (NEGATIVE) /HPF Urine Mucus (Auto) SLIGHT (NEGATIVE) /HPF Urine Culture Reflexed YES (NO) Urine Glucose 50 (NEGATIVE) mg/dL SARS-CoV-2 (PCR) (NEGATIVE) 04/29/21 04/29/21 04/29/21 Range/Units 15:26 18:45 20:06 WBC (4.0-10.5) K/mm3 RBC (4.1-5.4) M/mm3 Hgb (12.0-16.0) gm/dl Hct (35-47) % MCV (78-100) fl MCH (26-32) pg MCHC (32-36) g/dl RDW (11.5-14.0) % Plt Count (150-450) K/mm3 MPV (7.5-11.0) fl Gran % (36.0-66.0) % Eos # (Auto) (0-0.5) Absolute Lymphs (auto) (1.0-4.6) Absolute Monos (auto) (0.0-1.3) Lymphocytes % (24.0-44.0) % Monocytes % (0.0-12.0) % Eosinophils % (0.00-5.0) % Basophils % (0.0-0.4) % Absolute Granulocytes (1.4-6.9) Segmented Neutrophils (36.0-66.0) % Lymphocytes (Manual) (24-44) % Monocytes (Manual) (0.0-12.0) % Basophils # (0-0.4) Platelet Estimate (NORMAL) RBC Morphology Anisocytosis Microcytosis Macrocytosis Smear Path Review Sodium (137-145) mmol/L Potassium (3.5-5.1) mmol/L Chloride (98-107) mmol/L Carbon Dioxide (22-30) mmol/L Anion Gap (5-15) MEQ/L BUN (7-17) mg/dL Creatinine (0.52-1.04) mg/dL Estimated GFR ML/MIN Glucose (74-106) mg/dL POC Glucometer (74 to 106) mg/dL Lactic Acid (0.4-2.0) Calcium (8.4-10.2) mg/dL Total Bilirubin (0.2-1.3) mg/dL Direct Bilirubin (0.0-0.4) mg/dL AST (14-36) U/L ALT (0-35) U/L Alkaline Phosphatase (38-126) U/L Troponin 0.01 (0.00-0.03) ng/mL Troponin I < 0.012 (0.000-0.034) ng/mL Serum Total Protein (6.3-8.2) g/dL Albumin (3.5-5.0) g/dL Amylase (30-110) U/L Lipase (23-300) U/L Procalcitonin 5.580 H* (0.030-0.080) ng/mL Urine Color (YELLOW) Urine Appearance (CLEAR) Urine pH (5-6) Ur Specific Oscar (1.005-1.025) Urine Protein (Negative) Urine Ketones (NEGATIVE) Urine Blood (0-5) Aneesh/ul Urine Nitrite (NEGATIVE) Urine Bilirubin (NEGATIVE) Urine Urobilinogen (0-1) mg/dL Ur Leukocyte Esterase (NEGATIVE) Urine WBC (Auto) (0-5) /HPF Urine RBC (Auto) (0-2) /HPF U Epithel Cells (Auto) (FEW) /HPF Urine Bacteria (Auto) (NEGATIVE) /HPF Urine Mucus (Auto) (NEGATIVE) /HPF Urine Culture Reflexed (NO) Urine Glucose (NEGATIVE) mg/dL SARS-CoV-2 (PCR) (NEGATIVE) 04/29/21 04/30/21 04/30/21 Range/Units 21:11 01:08 04:15 WBC 21.1 H (4.0-10.5) K/mm3 RBC 4.07 L (4.1-5.4) M/mm3 Hgb 10.9 L D (12.0-16.0) gm/dl Hct 34.6 L (35-47) % MCV 85.0 (78-100) fl MCH 26.8 (26-32) pg MCHC 31.5 L (32-36) g/dl RDW 14.5 H (11.5-14.0) % Plt Count 200 (150-450) K/mm3 MPV 10.1 (7.5-11.0) fl Gran % 89.9 H (36.0-66.0) % Eos # (Auto) 0.01 (0-0.5) Absolute Lymphs (auto) 0.89 L (1.0-4.6) Absolute Monos (auto) 1.23 (0.0-1.3) Lymphocytes % 4.2 L (24.0-44.0) % Monocytes % 5.8 (0.0-12.0) % Eosinophils % 0.0 (0.00-5.0) % Basophils % 0.1 (0.0-0.4) % Absolute Granulocytes 18.96 H (1.4-6.9) Segmented Neutrophils (36.0-66.0) % Lymphocytes (Manual) (24-44) % Monocytes (Manual) (0.0-12.0) % Basophils # 0.02 (0-0.4) Platelet Estimate (NORMAL) RBC Morphology Anisocytosis Microcytosis Macrocytosis Smear Path Review Sodium (137-145) mmol/L Potassium (3.5-5.1) mmol/L Chloride (98-107) mmol/L Carbon Dioxide (22-30) mmol/L Anion Gap (5-15) MEQ/L BUN (7-17) mg/dL Creatinine (0.52-1.04) mg/dL Estimated GFR ML/MIN Glucose (74-106) mg/dL POC Glucometer 117 H (74 to 106) mg/dL Lactic Acid 0.6 (0.4-2.0) Calcium (8.4-10.2) mg/dL Total Bilirubin (0.2-1.3) mg/dL Direct Bilirubin (0.0-0.4) mg/dL AST (14-36) U/L ALT (0-35) U/L Alkaline Phosphatase (38-126) U/L Troponin (0.00-0.03) ng/mL Troponin I (0.000-0.034) ng/mL Serum Total Protein (6.3-8.2) g/dL Albumin (3.5-5.0) g/dL Amylase (30-110) U/L Lipase (23-300) U/L Procalcitonin (0.030-0.080) ng/mL Urine Color (YELLOW) Urine Appearance (CLEAR) Urine pH (5-6) Ur Specific Oscar (1.005-1.025) Urine Protein (Negative) Urine Ketones (NEGATIVE) Urine Blood (0-5) Aneesh/ul Urine Nitrite (NEGATIVE) Urine Bilirubin (NEGATIVE) Urine Urobilinogen (0-1) mg/dL Ur Leukocyte Esterase (NEGATIVE) Urine WBC (Auto) (0-5) /HPF Urine RBC (Auto) (0-2) /HPF U Epithel Cells (Auto) (FEW) /HPF Urine Bacteria (Auto) (NEGATIVE) /HPF Urine Mucus (Auto) (NEGATIVE) /HPF Urine Culture Reflexed (NO) Urine Glucose (NEGATIVE) mg/dL SARS-CoV-2 (PCR) (NEGATIVE) 04/30/21 04/30/21 Range/Units 04:15 06:38 WBC (4.0-10.5) K/mm3 RBC (4.1-5.4) M/mm3 Hgb (12.0-16.0) gm/dl Hct (35-47) % MCV (78-100) fl MCH (26-32) pg MCHC (32-36) g/dl RDW (11.5-14.0) % Plt Count (150-450) K/mm3 MPV (7.5-11.0) fl Gran % (36.0-66.0) % Eos # (Auto) (0-0.5) Absolute Lymphs (auto) (1.0-4.6) Absolute Monos (auto) (0.0-1.3) Lymphocytes % (24.0-44.0) % Monocytes % (0.0-12.0) % Eosinophils % (0.00-5.0) % Basophils % (0.0-0.4) % Absolute Granulocytes (1.4-6.9) Segmented Neutrophils (36.0-66.0) % Lymphocytes (Manual) (24-44) % Monocytes (Manual) (0.0-12.0) % Basophils # (0-0.4) Platelet Estimate (NORMAL) RBC Morphology Anisocytosis Microcytosis Macrocytosis Smear Path Review Sodium 136 L (137-145) mmol/L Potassium 3.3 L (3.5-5.1) mmol/L Chloride 105 (98-107) mmol/L Carbon Dioxide 23 (22-30) mmol/L Anion Gap 12.3 (5-15) MEQ/L BUN 19 H (7-17) mg/dL Creatinine 0.85 (0.52-1.04) mg/dL Estimated GFR > 60.0 ML/MIN Glucose 108 H (74-106) mg/dL POC Glucometer 96 (74 to 106) mg/dL Lactic Acid (0.4-2.0) Calcium 8.7 (8.4-10.2) mg/dL Total Bilirubin 1.00 (0.2-1.3) mg/dL Direct Bilirubin (0.0-0.4) mg/dL AST 18 (14-36) U/L ALT 17 (0-35) U/L Alkaline Phosphatase 83 (38-126) U/L Troponin (0.00-0.03) ng/mL Troponin I (0.000-0.034) ng/mL Serum Total Protein 5.9 L (6.3-8.2) g/dL Albumin 3.1 L (3.5-5.0) g/dL Amylase (30-110) U/L Lipase (23-300) U/L Procalcitonin (0.030-0.080) ng/mL Urine Color (YELLOW) Urine Appearance (CLEAR) Urine pH (5-6) Ur Specific Oscar (1.005-1.025) Urine Protein (Negative) Urine Ketones (NEGATIVE) Urine Blood (0-5) Aneesh/ul Urine Nitrite (NEGATIVE) Urine Bilirubin (NEGATIVE) Urine Urobilinogen (0-1) mg/dL Ur Leukocyte Esterase (NEGATIVE) Urine WBC (Auto) (0-5) /HPF Urine RBC (Auto) (0-2) /HPF U Epithel Cells (Auto) (FEW) /HPF Urine Bacteria (Auto) (NEGATIVE) /HPF Urine Mucus (Auto) (NEGATIVE) /HPF Urine Culture Reflexed (NO) Urine Glucose (NEGATIVE) mg/dL SARS-CoV-2 (PCR) (NEGATIVE) Accuchecks Date 04/30/21 Date 04/29/21 Time 21:22 - Radiology Impressions Radiology Exams & Impressions: Radiology Procedures Category Date Time Status ABDOMEN AND PELVIS W/0 CONTRAS [CT] Stat Exams 04/29/21 10:38 Completed CHEST 1 VIEW (PORTABLE) Stat Exams 04/29/21 09:58 Completed CHEST WITH CONTRAST [CT] Stat Exams 04/29/21 10:40 Completed Assessment/Plan (1) Sepsis Current Visit: Yes Status: Acute Qualifiers: Sepsis type: sepsis due to unspecified organism Sepsis acute organ dysfunction status: with acute organ dysfunction Severe sepsis acute organ dysfunction type: acute renal failure Acute renal failure type: unspecified Severe sepsis shock status: without septic shock Qualified Code(s): A41.9 - Sepsis, unspecified organism; R65.20 - Severe sepsis without septic shock; N17.9 - Acute kidney failure, unspecified Assessment & Plan: On admission she had tachycardia, elevated WBC, and acute renal insufficiency with known source of infection. (2) Cholecystitis Current Visit: Yes Status: Acute Assessment & Plan: Pt to have cholecystectomy today with Dr. Rachel Darling, thank you. Code(s): K81.9 - CHOLECYSTITIS, UNSPECIFIED (3) Prediabetes Current Visit: Yes Status: Chronic Code(s): R73.03 - PREDIABETES (4) Cholelithiases Current Visit: No Status: Chronic Qualifiers: Cholelithiasis location: gallbladder Cholecystitis presence: with cholecystitis Cholecystitis acuity: acute and chronic Biliary obstruction: without biliary obstruction Qualified Code(s): K80.12 - Calculus of gallbladder with acute and chronic cholecystitis without obstruction
[2021-04-30] MEDS: PROTONIX 40 MG IV IV SCH (10:02)
--- NOTE | 2021-04-30 10:10 | CONS ---
CONSULT DATE: 04/30/2021 HISTORY: This is a 75 year-old female seen in the emergency room personally due to abdominal pain. The patient states that she has had some "stomach aches" since Thursday night after eating at [employer]. She had some diarrhea, vomiting as well as runny nose and a cough. Her diarrhea and vomiting stopped on Thursday which was the next day but then she still had a cough throughout Thursday and then that seemed to subside. She had right middle abdominal pain that persisted. She is not having any blood in her stool. She is not having nausea or vomiting currently. She had slightly loose bowel movements today. She states she has had similar episode of abdominal pain that was pretty bad in the past. PAST MEDICAL/SURGICAL HISTORY: Includes diabetes, laparoscopic hysterectomy and bilateral salpingo-oophorectomy this year. She also had a bladder surgery. MEDICATIONS: Reviewed and in the patient's chart. ALLERGIES: NKDA. SOCIAL HISTORY: Lives with . PHYSICAL EXAMINATION: GENERAL: No acute distress. CVS: Regular rate and rhythm. PULMONARY: Nonlabored. ABDOMEN: Soft, tender to palpation. Mid and upper right abdomen nondistended, no rebound, no guarding. EXTREMITIES: Normal. LAB DATA AND TESTS: White blood count 36.7, hemoglobin 14.3, PLT count 270,000. Glucose 273, creatinine 1.3, bilirubin total 1.6. Amylase, lipase, liver function tests are within normal limits. CT scan showed diverticulosis as well as gallbladder inflammation and distention with a 2.5 cm stone with wall thickening, stranding and free fluid. Initial troponin was negative but second troponin was 0.1 which is mildly elevated and we are currently awaiting a third troponin. The patient does not have any chest pain or shortness of breath. She has had a cough. Her heart rate on her EKG is 125 with mild tachycardia. ASSESSMENT AND PLAN: This is a 75 year-old female who has what appears to be acute cholecystitis with cholelithiasis with a significantly inflamed gallbladder with a large gallstone on her CT scan. She is currently also being worked up for a mildly elevated troponin. A repeat troponin has been ordered and is pending. Based on this her medical doctor will determine whether she will be admitted to [facility] or whether she will be transferred to another facility due to further cardiac work up. Her bilirubin is elevated. I did order a direct bilirubin which is pending and we are also going to do stool studies on her due to her extremely high elevated white blood cell count and he diarrhea. My recommendation would be for her to be NPO, start antibiotics and then follow the laboratory studies, continue her cardiac work up and then based on these we will determine her surgical plan as it does appear that she has acute cholecystitis also. Our group will continue to follow the patient.
[2021-04-30] MEDS ORDERED: Lactated Ringers 1,000 ML IV SCH (10:30)
[2021-04-30] MEDS: Zosyn 3.375 GM Vial 3.375 GM in Sodium Chloride 100ML MINI-BAG PLUS 100 ML IV SCH ×2 (12:24→20:25)
[2021-04-30] MEDS ORDERED: Sensorcaine 0.25% 10 ML ONE (15:08)
[2021-04-30] MEDS ORDERED: Zemuron 100 MG/10 ML ONE ×3 (15:30→17:59)
[2021-04-30] MEDS ORDERED: SUBLIMAZE 100 MCG/2 ML ONE ×3 (15:30→18:45)
[2021-04-30] MEDS ORDERED: Xylocaine-Mpf 2% 5 Ml Vial ONE (15:30)
[2021-04-30] MEDS ORDERED: Zofran 4 MG/2 ML VIAL ONE (15:30)
[2021-04-30] MEDS ORDERED: DIPRIVAN 200 MG/20 ML IV ONE (15:30)
[2021-04-30] MEDS ORDERED: Decadron 4 MG INJ ONE (15:35)
[2021-04-30] MEDS ORDERED: BRIDION 200MG/2ML IV ONE (15:35)
[2021-04-30] MEDS ORDERED: TRANDATE 20 MG/4 ML SYRINGE IV ONE (17:06)
[2021-04-30] MEDS ORDERED: Zofran 4 MG/2 ML VIAL IV PRN (22:38)
[2021-04-30] MEDS: MORPHINE SULFATE 4 MG INJ IV PRN (22:51)
[2021-05-01] MEDS: Zosyn 3.375 GM Vial 3.375 GM in Sodium Chloride 100ML MINI-BAG PLUS 100 ML IV SCH ×4 (01:49→19:59)
[2021-05-01] MEDS: MORPHINE SULFATE 4 MG INJ IV PRN (05:06)
[2021-05-01 05:29] LABS: Absolute Neutrophil Ct (ANC) 12.55 (1.4-6.9); BASOPHIL % 0.1 % (0.0-0.4); Basophil (Absolute #) 0.01 (0-0.4); Eosinophil (Absolute #) 0 (0-0.5); Hematocrit 33.6 % (35-47); Hemoglobin 10.4 gm/dl (12.0-16.0); Lymphocyte (Absolute #) 0.44 (1.0-4.6); Lymphocytes % 3.2 % (24.0-44.0); Mean Cell Volume 86.6 fl (78-100); Mean Corpuscular Hemoglobin 26.8 pg (26-32); Mean Platelet Volume 10.3 fl (7.5-11.0); Monocyte (Absolute #) 0.69 (0.0-1.3); Neutrophil % 91.7 % (36.0-66.0); Platelet Count 237 K/mm3 (150-450); Red Blood Count 3.88 M/mm3 (4.1-5.4); Red Cell Distribution Width 14.4 % (11.5-14.0); White Blood Count 13.7 K/mm3 (4.0-10.5)
[2021-05-01 05:57] LABS: BILIRUBIN,TOTAL 1.1 mg/dL (0.2-1.3); Direct Bilirubin 0.6 mg/dL (0.0-0.4); Total Protein 5.7 g/dL (6.3-8.2)
[2021-05-01] MEDS: Sodium Chloride 0.9% 1000 ML 1,000 ML IV SCH ×2 (06:21→10:30)
[2021-05-01 06:26] LABS: Slide Review 1 YES
--- NOTE | 2021-05-01 08:47 | PCM.NOTE ---
Date and Time: 05/01/21844 Subjective Assessment: She is POD #1 s/p cholecystectomy. Tolerated liquids today and getting ready to eat cereal and a banana this morning. Has not passed flatus. Pain is 2/10 at rest and 5-6/10 with movement. Has been up to bathroom. - Review of Systems Constitutional: No Fever Abdominal/Gastrointestinal: Abdominal Pain Objective Exam General Appearance: no apparent distress, alert Neurologic Exam: oriented x 3, cooperative Skin Exam: normal color, warm, dry, No rash Eye Exam: eyes nml inspection Ears, Nose, Throat Exam: moist mucous membranes Neck Exam: normal inspection Respiratory Exam: normal breath sounds, lungs clear, No crackles/rales, No rhonchi, No wheezing Cardiovascular Exam: regular rate/rhythm, normal heart sounds, No murmur Gastrointestinal/Abdomen Exam: soft, normal bowel sounds, tenderness ( generalized, throughout), No mass, No guarding, No rebound Extremity Exam: No pedal edema, No swelling Back Exam: normal inspection, No rash OBJECTIVE DATA Vital Signs: Vital Signs - 24 hr Temp Pulse Resp BP Pulse Ox 05/01/21 07:26 98.4 F 77 16 126/60 93 L 05/01/21 05:21 95 05/01/21 04:00 97.7 F 73 18 142/64 96 05/01/21 03:39 92 L 05/01/21 00:00 96.9 F 83 16 134/62 97 04/30/21 23:00 87 150/68 04/30/21 22:00 97 F 79 16 157/69 97 04/30/21 21:30 79 142/66 04/30/21 21:00 83 16 140/65 95 04/30/21 20:30 81 16 152/67 95 04/30/21 20:00 97.2 F 85 12 140/63 94 L 04/30/21 19:45 96.9 F 84 14 134/63 97 04/30/21 19:30 79 12 139/65 88 L 04/30/21 15:09 96.9 F 96 H 22 134/61 94 L 04/30/21 12:00 96.9 F 96 H 22 134/61 94 L Pain Assessment - Last Documented Pain Intensity 2 Pain Scale Used 0-10 Pain Scale Intake and Output: Intake & Output 04/28/21 04/29/21 04/30/21 10/13/21 11:59 11:59 11:59 11:59 Intake Total 1528 2298 Output Total 30 Balance 1528 2268 Weight 55.3 kg 55.2 kg 55.2 kg Lab Results: Lab Results-Last 24 Hours 04/30/21 04/30/21 05/01/21 Range/Units 11:20 23:07 04:18 WBC (4.0-10.5) K/mm3 RBC (4.1-5.4) M/mm3 Hgb (12.0-16.0) gm/dl Hct (35-47) % MCV (78-100) fl MCH (26-32) pg MCHC (32-36) g/dl RDW (11.5-14.0) % Plt Count (150-450) K/mm3 MPV (7.5-11.0) fl Gran % (36.0-66.0) % Eos # (Auto) (0-0.5) Absolute Lymphs (auto) (1.0-4.6) Absolute Monos (auto) (0.0-1.3) Lymphocytes % (24.0-44.0) % Monocytes % (0.0-12.0) % Eosinophils % (0.00-5.0) % Basophils % (0.0-0.4) % Absolute Granulocytes (1.4-6.9) Basophils # (0-0.4) POC Glucometer 79 129 H (74 to 106) mg/dL Total Bilirubin (0.2-1.3) mg/dL Direct Bilirubin (0.0-0.4) mg/dL AST (14-36) U/L ALT (0-35) U/L Alkaline Phosphatase (38-126) U/L Serum Total Protein (6.3-8.2) g/dL Albumin (3.5-5.0) g/dL Procalcitonin 2.080 H* (0.030-0.080) ng/mL Slides for Path Review 05/01/21 05/01/21 05/01/21 Range/Units 04:18 04:18 06:46 WBC 13.7 H (4.0-10.5) K/mm3 RBC 3.88 L (4.1-5.4) M/mm3 Hgb 10.4 L (12.0-16.0) gm/dl Hct 33.6 L (35-47) % MCV 86.6 (78-100) fl MCH 26.8 (26-32) pg MCHC 31.0 L (32-36) g/dl RDW 14.4 H (11.5-14.0) % Plt Count 237 (150-450) K/mm3 MPV 10.3 (7.5-11.0) fl Gran % 91.7 H (36.0-66.0) % Eos # (Auto) 0 (0-0.5) Absolute Lymphs (auto) 0.44 L (1.0-4.6) Absolute Monos (auto) 0.69 (0.0-1.3) Lymphocytes % 3.2 L (24.0-44.0) % Monocytes % 5.0 (0.0-12.0) % Eosinophils % 0.0 (0.00-5.0) % Basophils % 0.1 (0.0-0.4) % Absolute Granulocytes 12.55 H (1.4-6.9) Basophils # 0.01 (0-0.4) POC Glucometer 126 H (74 to 106) mg/dL Total Bilirubin 1.10 (0.2-1.3) mg/dL Direct Bilirubin 0.6 H (0.0-0.4) mg/dL AST 125 H (14-36) U/L ALT 83 H (0-35) U/L Alkaline Phosphatase 153 H (38-126) U/L Serum Total Protein 5.7 L (6.3-8.2) g/dL Albumin 3.0 L (3.5-5.0) g/dL Procalcitonin (0.030-0.080) ng/mL Slides for Path Review YES Radiology Exams: Radiology Procedures Category Date Time Status ABDOMEN AND PELVIS W/0 CONTRAS [CT] Stat Exams 04/29/21 10:38 Completed CHEST 1 VIEW (PORTABLE) Stat Exams 04/29/21 09:58 Completed CHEST WITH CONTRAST [CT] Stat Exams 04/29/21 10:40 Completed Assessment/Plan (1) S/P cholecystectomy Current Visit: Yes Status: Acute Assessment & Plan: POD #1 - doing great. Would like to make sure WBC back to normal prior to discharge. On zosyn day #3. Code(s): Z90.49 - ACQUIRED ABSENCE OF OTHER SPECIFIED PARTS OF DIGESTIVE TRACT (2) Sepsis Current Visit: Yes Status: Resolved Qualifiers: Sepsis type: sepsis due to unspecified organism Sepsis acute organ dysfunction status: with acute organ dysfunction Severe sepsis acute organ dysfunction type: acute renal failure Acute renal failure type: unspecified Severe sepsis shock status: without septic shock Qualified Code(s): A41.9 - Sepsis, unspecified organism; R65.20 - Severe sepsis without septic shock; N17.9 - Acute kidney failure, unspecified (3) Prediabetes Current Visit: Yes Status: Chronic Code(s): R73.03 - PREDIABETES
--- NOTE | 2021-05-01 09:06 | CONS ---
CONSULT DATE: 04/30/2021 HISTORY: Apparently Dr. Darling was consulted last night. She has had known attacks for years of gallbladder, known gallstones. The past four or five days had persistent right sided abdominal pain, vomiting, diarrhea. She had a white count of 36,000. She had 2.5 cm stone and showing fluid on the CT scan. She had slight elevation in liver function test. Her bilirubin was down to 1 today. PAST MEDICAL HISTORY: Hypercholesterolemia, diabetes mellitus, arthritis. She had some breast cancer in the past. She had a prolapsed bladder. PAST SURGICAL HISTORY: Hysterectomy for prolapsed bladder in the past. Lumpectomy on the left side in the past. HOME MEDICATIONS: She has been on B12 and Metformin. ALLERGIES: NKDA. FAMILY HISTORY: Negative in regards to this problem. SOCIAL HISTORY: No smoking. REVIEW OF SYSTEMS: Fourteen systems reviewed. No chest pain or palpitations. Other systems negative or noncontributory as above and per preadmission questionnaire. She denies any blood thinner use. PHYSICAL EXAMINATION: GENERAL: Uncomfortable female. HEENT: Sclera nonicteric. NECK: No JVD. CHEST: Equal excursion, nonlabored breathing. CVS: Regular rate and rhythm. ABDOMEN: Soft. Tender in the right upper quadrant. EXTREMITIES: No cyanosis. NEURO: Alert, moving extremities symmetrically. PSYCH: Appropriate mood and affect. LAB DATA AND TESTS: Her alkaline phosphatase is normal. IMPRESSION: Acute exacerbation of chronic cholecystitis, symptomatic cholelithiasis. I feel the patient will benefit from cholecystectomy. Risks and benefits explained in detail including but not limited to bleeding or infection, risk of bowel, bladder or blood vessel injury, risk of bile leak, bile duct injury, retained stone or sludge possibly requiring further procedure either open or ERCP, general risk of anesthesia, deep venous thrombosis, pulmonary embolism, pneumonia, perioperative risk of aches, pains, bloating, constipation and/or loose stools possibly even chronic in nature. High probability or possibility of needing open procedure given her acute on chronic attack. Consent obtained, will proceed with laparoscopic cholecystectomy with possible open when OR time available.
[2021-05-01] MEDS: PROTONIX 40 MG IV IV SCH (09:33)
--- NOTE | 2021-05-01 09:35 | OP ---
SURGERY DATE/TIME: 04/30/2021 1604 PREOPERATIVE DIAGNOSIS: Acute cholecystitis, cholelithiasis. POSTOPERATIVE DIAGNOSIS: Acute gangrenous cholecystitis, sympatomatic cholelithiasis. PROCEDURE: Laparoscopic cholecystectomy, difficult. SURGEON: Dr. John Tam. ANESTHESIA: General. ESTIMATED BLOOD LOSS: Less than 100 cc. INDICATIONS: As noted above. Risks and benefits explained in detail but not limited to as outlined per surgical consult, consent was obtained. DESCRIPTION OF PROCEDURE AND FINDINGS: The patient was taken to the operating room. General anesthesia induced. Abdomen prepped and draped in the usual sterile fashion. After official time out and no disagreement with planned procedure, a transverse incision made at the supraumbilical area. Fascia grasped and pulled upward. Veress needle inserted and tested with saline. Pneumoperitoneum accomplished insufflating opening pressure of 0-15. A 5 mm bladeless port and camera inserted without difficulty followed by two - 5 mm right upper quadrant ports and 11 mm switch to 12 mm port in the epigastrium as there was phlegmon in the right upper quadrant with gangrenous gallbladder with areas of ischemia on the top half of the gallbladder this made it difficult to grasp. It was necessary to stick a Veress needle and syringe aspirated 40 cc of bile to allow the gallbladder to be grasped as it was too tense. It was difficult to visualize the area in question because of some omental adhesions up to the falciform. It was necessary to add another 5 port in the left upper quadrant this is placed with LigaSure device used to take down these omental adhesions staying away from the viscera. This gave us a better angle. Slowly and carefully dissected posterior, lateral to anterior fashion. Cystic duct and infundibulum slowly and carefully well skeletonized until the critical view obtained anteriorly and posteriorly. The cystic artery and cystic duct node was then carefully clipped and divided this opened up the angle to the cystic duct infundibular area slowly and carefully skeletonized this took quite some time given this phlegmon reaction but slowly and carefully accomplished. Once this was accomplished, some more secure closure the large artery clipper clipped the cystic duct site x3. The gallbladder side was cleared a little bit more. EndoGIA stapler fired across the infundibular stump. There did not appear to be any bile leak in from the stump at this point. The gallbladder is slowly and carefully dissected free from its concrete attachment to the liver bed with gangrenous changes up in the top part of the bed. Staying directly on the gallbladder wall where the staple line had been on the gallbladder side a couple of small stones spilled and these were visualized stones and carefully retrieved and passed off. The gallbladder is slowly and carefully dissected free staying directly on the gallbladder wall. There was a little pulsatile side branch off the cystic artery required two clips. Appeared to have good hemostasis. These were placed tangentially to the gallbladder bed. Gallbladder slowly dissected free clipping additional oozing side branches off the cystic artery and cystic duct as needed. There was one little, tiny little 0.5 mm questionable duct of Luschka this was carefully clipped right on the gallbladder wall. Gallbladder slowly and carefully dissected free. There is a gangrenous top that is carefully freed and placed in the bag. Again, necessary to enlarge the epigastric wound to allow this stone filled, large gallbladder to be pulled free and passed off. Copious amount of irrigation accomplished lateral to the liver and subhepatic space. Appeared to have good hemostasis. No signs of any bile leakage from the cystic duct stump or the gallbladder bed itself. Where the raw area of liver had been is quite friable given her gangrenous phlegmon reaction and a small piece of Surgicel was left in that area to be absorbed over time. ELYSE drain placed in subhepatic space. The visible clots that had oozed from the lateral edge of the liver where the omental adhesions had been up on the gallbladder appeared to have good hemostasis at this point. Clots were removed with a blunt scoop. Copious amount of irrigation irrigating clear. ELYSE drain placed in subhepatic space out through lateral port incision. Pneumoperitoneum decompressed once the drain was secured with PDS suture placed to bulb suction. The fascial defect that had been enlarged to allow the gallbladder bag to be pulled free was closed with 0 Vicryl running UR6 needle. Good hemostasis noted. Wound irrigated out. Skin stapled. 0.25% Marcaine local injected along the skin incision fascial defect. The patient tolerated the procedure well. There were no immediate complications. Findings discussed with the out in the waiting area.
[2021-05-01] MEDS: NORCO 5/325 MG PO PRN (20:00)
[2021-05-02] MEDS: Zosyn 3.375 GM Vial 3.375 GM in Sodium Chloride 100ML MINI-BAG PLUS 100 ML IV SCH ×5 (01:42→19:58)
[2021-05-02 05:11] LABS: Absolute Neutrophil Ct (ANC) 7.12 (1.4-6.9); Basophil (Absolute #) 0 (0-0.4); Eosinophil % 0.9 % (0.00-5.0); Eosinophil (Absolute #) 0.09 (0-0.5); Hematocrit 33.4 % (35-47); Hemoglobin 10.1 gm/dl (12.0-16.0); Lymphocyte (Absolute #) 1.56 (1.0-4.6); Lymphocytes % 16.1 % (24.0-44.0); Mean Cell Volume 89.1 fl (78-100); Mean Corpuscular Hemoglobin 26.9 pg (26-32); Mean Corpuscular Hgb Concent. 30.2 g/dl (32-36); Mean Platelet Volume 9.2 fl (7.5-11.0); Monocyte (Absolute #) 0.89 (0.0-1.3); Monocytes % 9.2 % (0.0-12.0); Neutrophil % 73.8 % (36.0-66.0); Platelet Count 262 K/mm3 (150-450); Red Blood Count 3.75 M/mm3 (4.1-5.4); Red Cell Distribution Width 14.9 % (11.5-14.0); White Blood Count 9.7 K/mm3 (4.0-10.5)
[2021-05-02] MEDS: NORCO 5/325 MG PO PRN ×2 (05:20→13:07)
[2021-05-02 05:32] LABS: ALBUMIN 2.8 g/dL (3.5-5.0); ALKALINE PHOSPHATASE 124 U/L (38-126); ANION GAP 10.8 MEQ/L (5-15); BLOOD UREA NITROGEN 14 mg/dL (7-17); CHLORIDE 112 mmol/L (98-107); Calcium 7.9 mg/dL (8.4-10.2); Carbon Dioxide 20 mmol/L (22-30); EST GLOMERULAR FILTRATION RATE > 60.0 ML/MIN; Glucose 115 mg/dL (74-106); Potassium 3.3 mmol/L (3.5-5.1); SGOT/AST 36 U/L (14-36); SGPT/ALT 52 U/L (0-35); SODIUM 140 mmol/L (137-145); Total Protein 5.5 g/dL (6.3-8.2)
--- NOTE | 2021-05-02 08:35 | PCM.NOTE ---
Date and Time: 05/02/21830 Subjective Assessment: Pt's pain is 2/10 at rest, up to 5/10 with up to bathroom or readjusting in bed. Currently no pain but she just took a po pain med. Tolerated food yesterday. Passing flatus! no BMs. - Review of Systems Constitutional: No Fever Abdominal/Gastrointestinal: No Vomiting Objective Exam General Appearance: no apparent distress, alert Neurologic Exam: oriented x 3, cooperative Skin Exam: normal color, warm, dry, No rash Neck Exam: normal inspection Respiratory Exam: normal breath sounds, lungs clear, No crackles/rales, No rhonchi, No wheezing Cardiovascular Exam: regular rate/rhythm, normal heart sounds, No murmur Gastrointestinal/Abdomen Exam: soft, normal bowel sounds, tenderness (mild, diffuse), other (bandage present RUQ, some dried blood present. other bandages c/d/i. ELYSE drain present wiht serosanguinous drainage.) Extremity Exam: No pedal edema, No swelling OBJECTIVE DATA Vital Signs: Vital Signs - 24 hr Temp Pulse Resp BP Pulse Ox 05/02/21 07:27 97.0 F 74 16 131/60 92 L 05/02/21 06:54 92 L 05/02/21 05:00 97.3 F 77 16 134/65 90 L 05/02/21 04:00 16 05/02/21 00:14 97.2 F 79 20 116/57 91 L 05/02/21 00:00 20 05/01/21 20:20 98.2 F 82 20 129/59 92 L 05/01/21 16:37 98.7 F 74 16 127/58 93 L 05/01/21 13:00 97.3 F 79 16 125/55 94 L Pain Assessment - Last Documented Pain Intensity 2 Pain Scale Used 0-10 Pain Scale Intake and Output: Intake & Output 04/29/21 04/30/21 05/01/21 05/02/21 11:59 11:59 11:59 11:59 Intake Total 1528 2298 1960 Output Total 30 315 Balance 1528 8468 1645 Weight 55.3 kg 55.2 kg 55.2 kg Lab Results: Lab Results-Last 24 Hours 05/01/21 05/01/21 05/02/21 Range/Units 11:30 16:29 00:00 WBC (4.0-10.5) K/mm3 RBC (4.1-5.4) M/mm3 Hgb (12.0-16.0) gm/dl Hct (35-47) % MCV (78-100) fl MCH (26-32) pg MCHC (32-36) g/dl RDW (11.5-14.0) % Plt Count (150-450) K/mm3 MPV (7.5-11.0) fl Gran % (36.0-66.0) % Eos # (Auto) (0-0.5) Absolute Lymphs (auto) (1.0-4.6) Absolute Monos (auto) (0.0-1.3) Lymphocytes % (24.0-44.0) % Monocytes % (0.0-12.0) % Eosinophils % (0.00-5.0) % Basophils % (0.0-0.4) % Absolute Granulocytes (1.4-6.9) Basophils # (0-0.4) Sodium (137-145) mmol/L Potassium (3.5-5.1) mmol/L Chloride (98-107) mmol/L Carbon Dioxide (22-30) mmol/L Anion Gap (5-15) MEQ/L BUN (7-17) mg/dL Creatinine (0.52-1.04) mg/dL Estimated GFR ML/MIN Glucose (74-106) mg/dL POC Glucometer 226 H 167 H 137 H (74 to 106) mg/dL Calcium (8.4-10.2) mg/dL Total Bilirubin (0.2-1.3) mg/dL AST (14-36) U/L ALT (0-35) U/L Alkaline Phosphatase (38-126) U/L Serum Total Protein (6.3-8.2) g/dL Albumin (3.5-5.0) g/dL 05/02/21 05/02/21 05/02/21 Range/Units 04:52 04:52 06:51 WBC 9.7 (4.0-10.5) K/mm3 RBC 3.75 L (4.1-5.4) M/mm3 Hgb 10.1 L (12.0-16.0) gm/dl Hct 33.4 L (35-47) % MCV 89.1 (78-100) fl MCH 26.9 (26-32) pg MCHC 30.2 L (32-36) g/dl RDW 14.9 H (11.5-14.0) % Plt Count 262 (150-450) K/mm3 MPV 9.2 (7.5-11.0) fl Gran % 73.8 H (36.0-66.0) % Eos # (Auto) 0.09 (0-0.5) Absolute Lymphs (auto) 1.56 (1.0-4.6) Absolute Monos (auto) 0.89 (0.0-1.3) Lymphocytes % 16.1 L (24.0-44.0) % Monocytes % 9.2 (0.0-12.0) % Eosinophils % 0.9 (0.00-5.0) % Basophils % 0.0 (0.0-0.4) % Absolute Granulocytes 7.12 H (1.4-6.9) Basophils # 0 (0-0.4) Sodium 140 (137-145) mmol/L Potassium 3.3 L (3.5-5.1) mmol/L Chloride 112 H (98-107) mmol/L Carbon Dioxide 20 L (22-30) mmol/L Anion Gap 10.8 (5-15) MEQ/L BUN 14 (7-17) mg/dL Creatinine 0.70 (0.52-1.04) mg/dL Estimated GFR > 60.0 ML/MIN Glucose 115 H (74-106) mg/dL POC Glucometer 100 (74 to 106) mg/dL Calcium 7.9 L (8.4-10.2) mg/dL Total Bilirubin 0.70 (0.2-1.3) mg/dL AST 36 (14-36) U/L ALT 52 H (0-35) U/L Alkaline Phosphatase 124 (38-126) U/L Serum Total Protein 5.5 L (6.3-8.2) g/dL Albumin 2.8 L (3.5-5.0) g/dL Multi-Disciplinary Progress Notes: Multi-Disciplinary Progress Notes 05/02/21 06:55 Respiratory Note by Mariaa Pires ROOM AIR RESTING SATS 88% PLACED ON 2L NC SATS 92% Initialized on 05/02/21 06:55 - END OF NOTE 05/01/21 09:56 Case Management Note by Lexi Etienne NO CHANGE IN DC PLANS AT THIS TIME- WILL CONTINUE TO FOLLOW Initialized on 05/01/21 09:56 - END OF NOTE Assessment/Plan (1) S/P cholecystectomy Current Visit: Yes Status: Acute Assessment & Plan: POD #2. Appears to be doing very well. Luis Alberto po, passing flatus. On zosyn - added probiotic today. Code(s): Z90.49 - ACQUIRED ABSENCE OF OTHER SPECIFIED PARTS OF DIGESTIVE TRACT (2) Sepsis Current Visit: Yes Status: Resolved Qualifiers: Sepsis type: sepsis due to unspecified organism Sepsis acute organ dysfunc tion status: with acute organ dysfunction Severe sepsis acute organ dysfunction type: acute renal failure Acute renal failure type: unspecified Severe sepsis shock status: without septic shock Qualified Code(s): A41.9 - Sepsis, unspecified organism; R65.20 - Severe sepsis without septic shock; N17.9 - Acute kidney failure, unspecified (3) Prediabetes Current Visit: Yes Status: Chronic Code(s): R73.03 - PREDIABETES
[2021-05-02] MEDS: Sodium Chloride 0.9% 1000 ML 1,000 ML IV SCH ×2 (09:19→19:57)
[2021-05-02] MEDS: Acidophilus TABLET PO SCH ×3 (09:21→22:44)
[2021-05-02] MEDS: PROTONIX 40 MG IV IV SCH (09:21)
[2021-05-03] MEDS: Zosyn 3.375 GM Vial 3.375 GM in Sodium Chloride 100ML MINI-BAG PLUS 100 ML IV SCH ×2 (04:00→09:09)
[2021-05-03] MEDS ORDERED: APRESOLINE 20 MG/ML INJ IV ONE (04:19)
[2021-05-03 07:49] VITALS: BP 168/72; PULSE 91; O2SAT 91
[2021-05-03 08:38] LABS: 027 TOX PROD PRESUMPTIVE NEGATIVE (NEGATIVE); TOXIGENIC C. DIFF ORG NEGATIVE (NEGATIVE)
[2021-05-03] MEDS: Acidophilus TABLET PO SCH (09:08)
[2021-05-03] MEDS: PROTONIX 40 MG IV IV SCH (09:08)
--- NOTE | 2021-05-03 10:09 | PCM.DS ---
Discharge Summary Date of Admission: 04/30/21 08:03 Admitting Physician: BECK SHER Consults: Consults on Case 04/29/21 13:04 Consult Surgery ROUTINE Primary Care Provider: KASIE BROWN Allergies Allergies No Known Drug Allergies Allergy (Verified 04/29/21 09:41) Hospital Summary - Hospital Course Hospital Course: is a 75 year old female pt of Ana Cristinaedwardo Brown with pre-diabetes who was admitted through ER with sepsis and cholecystitis. In the ER she was found to have WBC of 36,700, acute renal insufficiency, tachycardia, and distended GB with 2.5 cm stone, stranding, and fluid on CT scan. Pt was started on IV zosyn and surgery was consulted. She had cholecystectomy with ELYSE drain placed. Postoperatively she has done very well. Ate well yesterday and did have a bM. She was started on probiotics. Last night she had an elevated bp of 180 systolic and was given IV hydralazine. It was noted her IV fluids were still running, so those were stopped. Pt does have a BP cuff at home and will check her pressures after discharge to home. She will not be started on antihypertensives at this time. Will be discharged today on augmentin per Dr. Wagner Darling, thank you. - Vitals & Intake/Output Vital Signs: Vital Signs Temperature 98.4 F 05/03/21 07:48 Pulse Rate 91 H 05/03/21 07:48 Respiratory Rate 16 05/03/21 08:00 Blood Pressure 168/72 05/03/21 07:48 O2 Sat by Pulse Oximetry 91 L 05/03/21 07:55 Intake & Output: Intake & Output 04/30/21 05/01/21 05/02/21 05/03/21 11:59 11:59 11:59 11:59 Intake Total 1528 2298 1960 4503 Output Total 30 315 245 Balance 1528 2268 1645 4258 Weight 55.2 kg 55.2 kg 55.2 kg - Lab Result Diagrams: 05/02/21 04:52 05/02/21 04:52 Lab Results-Last 24 Hrs: Lab Results-Last 24 Hours 05/02/21 05/02/21 05/02/21 Range/Units 11:09 15:43 22:47 POC Glucometer 141 H 113 H 103 (74 to 106) mg/dL C. difficile Screen (NEGATIVE) C.difficile 027-NAP1-B1 (NEGATIVE) 05/03/21 05/03/21 Range/Units 07:00 07:01 POC Glucometer 95 (74 to 106) mg/dL C. difficile Screen NEGATIVE (NEGATIVE) C.difficile 027-NAP1-B1 PRESUMPTIVE NEGATIVE (NEGATIVE) Micro Results-Entire Visit: Microbiology 04/29/21 15:00 Urine Culture - Final Urine, Void NO GROWTH 04/29/21 22:00 Blood Culture - Preliminary Blood NO GROWTH TO DATE 04/29/21 21:45 Blood Culture - Preliminary Blood NO GROWTH TO DATE 04/30/21 Unknown Stool Culture Result 1 - Final Stool Not Reportable Stool Culture Result 2 - Final Not Reportable Stool Culture Result 3 - Final Not Reportable Stool Culture Result 4 - Final Not Reportable Stool Culture Organism Suscept - Final Not Reportable Campylobacter Result 1 - Final Not Reportable Campylobacter Result 2 - Final Not Reportable Campylobactor Result 3 - Final Not Reportable Campylobacter Result 4 - Final Not Reportable Campylobactor Susceptibility - Final Not Reportable Accuchecks Date 05/03/21 Date 05/02/21 Date 05/02/21 - Procedures and Test Procedures and Tests throughout Hospitalization: Therapy Orders & Screens 05/01/21 03:38 Oxygen Nasal Cannula 2 lpm Comment: Diagnosis: SEPSIS, CHOLECYSTITIS Discharge Exam General Appearance: no apparent distress, alert Neurologic Exam: oriented x 3, cooperative Eye Exam: eyes nml inspection Ears, Nose, Throat Exam: moist mucous membranes Neck Exam: normal inspection Respiratory Exam: normal breath sounds, lungs clear, No crackles/rales, No rhonchi, No wheezing Cardiovascular Exam: regular rate/rhythm, normal heart sounds, No murmur Gastrointestinal/Abdomen Exam: soft, normal bowel sounds, other (dressings c/d/i. ELYSE with serosanguinous drainage.), No tenderness, No distention, No mass, No guarding, No rebound Extremity Exam: normal inspection, No pedal edema, No swelling Skin Exam: normal color, warm, dry, No rash Final Diagnosis/Problem List - Final Discharge Diagnosis/Problem (1) S/P cholecystectomy Current Visit: Yes Status: Acute Assessment & Plan: POD #3, doing great, home on augmentin (per surgery - thank you). Code(s): Z90.49 - ACQUIRED ABSENCE OF OTHER SPECIFIED PARTS OF DIGESTIVE TRACT (2) Sepsis Current Visit: Yes Status: Resolved (3) Prediabetes Current Visit: Yes Status: Chronic Code(s): R73.03 - PREDIABETES (4) Elevated blood pressure reading without diagnosis of hypertension Current Visit: Yes Status: Acute Assessment & Plan: She will check BP at home, report anything 180 or more systolic or 110 or more diastolic to her PCP. Code(s): R03.0 - ELEVATED BLOOD-PRESSURE READING, W/O DIAGNOSIS OF HTN - Discharge Disposition: Home, Self-Care Condition: Good Prescriptions: New Amoxicillin/Potassium Clav [Augmentin 875-125 Tablet] 1 each PO BID #8 tablet Hydrocodone/Acetaminophen [Hydrocodone-Acetamin 5-325 mg] 1 tab PO Q6HPRN PRN 7 Days #20 tablet MDD 4 PRN Reason: Pain Lactobacillus Acidophilus [Acidophilus TABLET] 1 tab PO TID tablet Continue Metformin HCl 500 mg [Glucophage 500 MG] 500 mg PO HS Mecobalamin [B12 Active] 1,000 mg PO WEEKLY Follow up with: JARVIS BARLOW [COURTESY STAFF] - 05/13/21 9:40 am BECK SHER [ACTIVE STAFF] - 05/09/21 11:30 am
== END 2021-05-03 12:00 | disposition home or self-care (01) | DRG 417 ==
LOC: ED 09:36 → MED SURG 18:09 → OBSVTOIN 04-30 08:03
PROVIDERS: ADMIT Family Medicine; ATTEND Family Medicine
PROC: 0FT44ZZ Resection of Gallbladder, Percutaneous Endoscopic Approach (ICD-10-PCS; principal; 2021-04-30)
DX: K80.00 Calculus of gallbladder with acute cholecystitis without obstruction (principal); A41.9 Sepsis, unspecified organism; K82.A1 Gangrene of gallbladder in cholecystitis; R53.83 Other fatigue; R51.9 Headache, unspecified; R11.2 Nausea with vomiting, unspecified; R03.0 Elevated blood-pressure reading, without diagnosis of hypertension; R73.03 Prediabetes; E78.00 Pure hypercholesterolemia, unspecified; R00.0 Tachycardia, unspecified; R79.89 Other specified abnormal findings of blood chemistry; R19.7 Diarrhea, unspecified; Z85.3 Personal history of malignant neoplasm of breast; Z79.899 Other long term (current) drug therapy; Z20.822 Contact with and (suspected) exposure to COVID-19
CPT/HCPCS: 36000; 36415; 47562; 71045; 71260; 74176; 80053; 80076; 81001; 82150; 82248; 82947; 83605; 83690; 84145; 84484; 85025; 87040; 87045; 87046; 87086; 87328; 87329; 87493; 93005; 93268; 94760; 96365; 99285; G0378; U0003; 88304; 99100; J0360; J1100; J2270; J2405; J2543; J2704; J3010; A9270-GY